=== PATIENT | male | born 1945 | race Caucasian/White ===

== ENCOUNTER 2020-03-06 19:10 | Emergency (ER) | payer MEDICARE, SELFPAY ==
--- NOTE | ~2020-03-06 | CT_ITS ---
EXAMINATION: CT brain wo con DATE: 03/06/2020 19:43 INDICATION: Numbness in the hands TECHNIQUE: Computed tomography (CT) of the head was performed without intravenous contrast. Sagittal and coronal reconstructions were performed. The mA was adjusted according to patient size. Iterative reconstruction technique was employed. The dose-length product was 681.00 mGy-cm. COMPARISON: None FINDINGS: No acute intracranial hemorrhage, acute infarction or abnormal extra axial fluid collection. There is mild scattered white matter hypoattenuation consistent with chronic small vessel ischemic disease. S ymmetric prominence of the sulci consistent with mild age-appropriate diffuse cerebral volume loss. V entricles are normal and symmetric. No mass/mass effect. Intracranial calcified cerebral atherosclero sis is noted. 9 x 6 mm nodule in the posterior right nasopharynx. The orbits, paranasal sinuses and m astoid air cells are normal. Intracranial calcified cerebral atherosclerosis is noted. IMPRESSION: 1. No acute intracranial process. 2. Mild scattered white matter hypoattenuation consistent with chronic small vessel ischemic disease. 3. 9 x 6 mm nodule which appears to arise from the lateral wall of the posterior right nasopharynx. D ifferential would include inverted papilloma, antrochoanal polyp, malignancy including squamous cell carcinoma or lymphoma. Alternatively this could represent adherent mucus. Consider ENT consultation f or further evaluation. Reviewed, dictated and finalized at location A. CARRIER DRIVER IMPRESSION: 1. No acute intracranial process. 2. Mild scattered white matter hypoattenuation consistent with chronic small ve ssel ischemic disease. 3. 9 x 6 mm nodule which appears to arise from the lateral wall of the posterio r right nasopharynx. Differential would include inverted papilloma, antrochoana l polyp, malignancy including squamous cell carcinoma or lymphoma. Alternativel y this could represent adherent mucus. Consider ENT consultation for further ev aluation.
--- NOTE | ~2020-03-06 | XR_ITS ---
EXAMINATION: XR chest 1V DATE: 03/06/2020 19:48 INDICATION: Confusion and numbness in the fingers. TECHNIQUE: frontal view of the chest was obtained. COMPARISON: Chest radiograph dated 04/03/2009 FINDINGS: Opacities at the left lower lung zone. No pulmonary edema, pleural effusion or pneumothorax. Borderli ne heart size. Median sternotomy wires and mediastinal surgical clips are seen, likely from prior cor onary artery bypass grafting. Cholecystectomy clips in right upper quadrant. IMPRESSION: 1. Opacities in the left lower lung zone which could represent atelectasis or pneumonia. Reviewed, dictated and finalized at location A. TING GATE DRIVER IMPRESSION: 1. Opacities in the left lower lung zone which could represent atelectasis or p neumonia.
[2020-03-06 19:19] VITALS: BP 225/70; PULSE 81; RESP 16; TEMP 36.8; O2SAT 98
--- NOTE | 2020-03-06 19:24 | ECG_ITS ---
Measurements Intervals [place] Rate: 73 P: 27 [place]: 146 QRS: -2 QRSD: 97 T: 30 QT: 388 QTc: 430 Interpretive Statements SINUS RHYTHM NORMAL ECG Electronically Signed On 03-06-2020 19:55:20 HAND I THERMAL CUTTER by Sahil Robison D.O.
[2020-03-06 19:37] LABS: Glucose Point of Care 120 (65-105)
[2020-03-06 19:45] LABS: Basophils Percent Auto 0.2 % (0.2-1.2); Eosinophils Absolute Auto 0.1 K/mm3 (0-0.3); Eosinophils Percent Auto 1.3 % (0-4.4); Hematocrit 42.6 % (42.0-52.0); Hemoglobin 14.1 g/dL (14.0-18.0); Immature Granulocyte Absolute 0.03 K/mm3 (0.00-0.031); Immature Granulocyte Percent A 0.4 % (0-0.5); Lymphocytes Absolute Auto 1.99 K/mm3 (0.9-3.2); Lymphocytes Percent Auto 23.4 % (18.3-44.2); Mean Corpuscular HGB Conc 33.1 g/dl (32-36); Mean Corpuscular Hemoglobin 27.4 pg (26-34); Mean Corpuscular Volume 82.9 fl (80-100); Mean Platelet Volume 10.1 fl (7.4-10.4); Monocytes Absolute Auto 0.8 K/mm3 (0.1-0.6); Monocytes Percent Auto 8.9 % (2.6-8.5); Neutrophils Absolute Auto 5.6 K/mm3 (1.3-6.7); Neutrophils Percent Auto 65.8 % (45.5-73.1); Platelet Count Result 180 k/mm3 (150-375); Red Blood Count 5.14 M/mm3 (4.6-6.20); Red Cell Distribution Width 13.8 % (11.5-14.5); White Blood Count 8.5 K/mm3 (4.5-10.0)
[2020-03-06 19:54] LABS: Prothrombin Time 14.2 Seconds (11.1-14.7)
[2020-03-06 19:57] LABS: Anion Gap 8 mmol/L (8-16); Blood Urea Nitrogen 22 mg/dL (9-20); Calcium 9.6 mg/dL (8.4-10.2); Carbon Dioxide 29 mmol/L (22-30); Chloride 101 mmol/L (98-107); Estimated Glomerular Filt Rate 54; Glucose 141 mg/dL (75-110); Potassium 4.9 mmol/L (3.4-5.0); Sodium 138 mmol/L (137-145)
[2020-03-06 20:08] LABS: Troponin I 0.014 ng/mL (0.000-0.034)
[2020-03-06 20:18] VITALS: BP 204/59; PULSE 66; RESP 20; O2SAT 96
[2020-03-06 20:32] LABS: Glucose Point of Care 146 (65-105)
--- NOTE | 2020-03-06 20:36 | ED.NEUROSD ---
HPI - Neuro Symptoms/Deficit General Chief Complaint: Neuro Symptoms/Deficit Stated Complaint: Numbness and confusion Time Seen by Provider: 03/06/20 20:18 Source: patient Mode of arrival: ambulatory Limitations: no limitations History of Present Illness HPI Narrative: Patient 72-year-old male complaining of numbness, tingling of both of his hands started prior to arrival after playing golf this afternoon. Patient states his symptoms lasted approximately 30 to 45 minutes and now resolved. Patient states he gave himself a sugar since has had similar episodes in the past when his sugar was low. Patient claims he did not eat anything prior to playing golf and that could have led to his low blood sugar. Patient also states that his blood pressure is high because he forgot to take his afternoon blood pressure medication at 4 PM. Patient is a [id number] diabetic takes Metformin for it. Patient denies any speech or visual disturbance, focal numbness, focal weakness or unsteady gait. Patient denies any chest pain, shortness of breath, abdominal pain, nausea, vomiting, fever or chills. Related Data Allergies Allergy/AdvReac Type Severity Reaction Status Date / Time No Known Allergies Allergy Mild Verified 03/06/20 19:11 Review of Systems Review of Systems: All systems reviewed & are unremarkable except as noted in HPI and below Constitutional: Constitutional: Denies body ache(s), Denies chills, Denies excessive sweating, Denies fatigue, Denies fever(s), Denies headache(s), Denies lethargy, Denies malaise, Denies weakness and Denies weight loss Eyes: Eyes: Denies blurry vision, Denies change in vision and Denies loss of vision ENT: Denies dizziness, Denies ear discharge, Denies headache(s), Denies lip swelling, Denies epistaxis, Denies nasal congestion, Denies neck pain, Denies throat swelling and Denies tongue swelling Cardiovascular: Cardiovascular: Denies chest pain, Denies chest pain at rest, Denies chest pain with activity, Denies diaphoresis, Denies rapid heart rate, Denies edema, Denies irregular heart rhythm, Denies lightheadedness, Denies palpitations, Denies dyspnea and Denies dyspnea on exertion Respiratory: Respiratory: Denies chest congestion, Denies cough, Denies hemoptysis, Denies dyspnea and Denies dyspnea on exertion Gastrointestinal: Gastrointestinal: Denies abdominal pain, Denies melena, Denies hematochezia, Denies diarrhea, Denies nausea, Denies vomiting and Denies hematemesis Musculoskeletal: Musculoskeletal: Denies abnormal gait, Denies deformity, Denies joint swelling, Denies limited range of motion, Denies neck pain and Denies numbness Neurologic: Denies Abnormal speech present, Denies abnormal gait, Denies confusion, Denies dizziness, Denies headache(s), Denies focal weakness, Denies loss of vision, Denies Other visual disturbances and Denies weakness Psychiatric: Psychiatric: Denies confusion, Denies depression, Denies auditory hallucinations, Denies homicidal ideation and Denies suicidal ideation Endocrine: Endocrine: Denies cold intolerance, Denies excessive sweating, Denies fatigue, Denies heat intolerance and Denies palpitations Hematologic/Lymphatic: Hematologic/Lymphatic: Denies easy bleeding and Denies easy bruising Allergic/Immunologic: Allergic/Immunologic: Denies lip swelling, Denies throat swelling and Denies tongue swelling [facility] Social History Social History Gender identity (if verbalized by the patient): Male Exam Const: General: cooperative, healthy appearing, comfortable, no acute distress, well developed, alert and awake; No confusion Orientation/consciousness: oriented to person, oriented to place, oriented to time, patient oriented x3 and No confusion Limitations: no limitations HENMT: Head: normal to inspection, normocephalic and atraumatic Ears: hearing grossly normal bilaterally, TM normal on the right and TM normal on the left General nose exam: Normal external nose prese
[2020-03-06 22:07] VITALS: BP 206/49; PULSE 77; RESP 16; O2SAT 100
[2020-03-06] MEDS: LABETALOL HCL INJ 100 MG/20 ML VIAL 10 MG IV PUSH (22:20)
[2020-03-06 22:49] VITALS: BP 149/48; PULSE 68; RESP 18; O2SAT 99
== END 2020-03-06 23:14 | disposition home or self-care (01) ==
PROVIDERS: Emergency Provider Emergency Medicine; PCP Internal Medicine
DX: I16.0 Hypertensive urgency (principal); R20.2 Paresthesia of skin; E11.9 Type 2 diabetes mellitus without complications; Z79.84 Long term (current) use of oral hypoglycemic drugs
CPT/HCPCS: 36415; 70450; 71045; 80048; 82948; 84484; 85025; 85610; 85730; 93005; 96374; 99284

== ENCOUNTER 2020-05-13 11:18 | Outpatient (CLI) | payer MEDICARE, SELFPAY ==
[2020-05-13 12:36] LABS: Anion Gap 6 mmol/L (8-16); Blood Urea Nitrogen 19 mg/dL (9-20); Calcium 9.6 mg/dL (8.4-10.2); Carbon Dioxide 29 mmol/L (22-30); Chloride 103 mmol/L (98-107); Estimated Glomerular Filt Rate > 60; Glucose 184 mg/dL (75-110); Potassium 5.3 mmol/L (3.4-5.0); Sodium 138 mmol/L (137-145)
== END 2020-05-13 11:19 | disposition home or self-care (01) ==
PROVIDERS: PCP Internal Medicine; Visit Provider Internal Medicine Cardiovascular Disease
DX: I05.2 Rheumatic mitral stenosis with insufficiency (principal)
CPT/HCPCS: 36415; 80048

== ENCOUNTER 2020-05-21 11:48 | Outpatient (CLI) | payer MEDICARE, SELFPAY ==
[2020-05-21 12:19] LABS: Anion Gap 8 mmol/L (8-16); Blood Urea Nitrogen 27 mg/dL (9-20); Calcium 9.9 mg/dL (8.4-10.2); Carbon Dioxide 29 mmol/L (22-30); Chloride 101 mmol/L (98-107); Estimated Glomerular Filt Rate 54; Glucose 177 mg/dL (75-110); Potassium 5.2 mmol/L (3.4-5.0); Sodium 138 mmol/L (137-145)
== END 2020-05-21 11:49 | disposition home or self-care (01) ==
PROVIDERS: PCP Internal Medicine; Visit Provider Internal Medicine Cardiovascular Disease
DX: E87.5 Hyperkalemia (principal)
CPT/HCPCS: 36415; 80048

== ENCOUNTER 2020-08-13 12:43 | Outpatient (CLI) | payer MEDICARE, SELFPAY ==
[2020-08-13 13:16] LABS: Potassium 5.3 mmol/L (3.4-5.0)
[2020-08-13 13:22] LABS: Alanine Aminotransferase 24 U/L (4-50); Albumin Level 4.4 g/dL (3.5-5.1); Alkaline Phosphatase 54 U/L (38-126); Anion Gap 5 mmol/L (8-16); Aspartate Amino Transferase 32 U/L (17-59); Bilirubin,Total 0.7 mg/dL (0.2-1.3); Blood Urea Nitrogen 19 mg/dL (9-20); Calcium 9.3 mg/dL (8.4-10.2); Carbon Dioxide 27 mmol/L (22-30); Chloride 102 mmol/L (98-107); Estimated Glomerular Filt Rate > 60; Glucose 257 mg/dL (75-110); Sodium 134 mmol/L (137-145)
== END 2020-08-13 12:44 | disposition home or self-care (01) ==
PROVIDERS: PCP Internal Medicine; Visit Provider Internal Medicine
DX: R79.89 Other specified abnormal findings of blood chemistry (principal)
CPT/HCPCS: 36415; 80053

== ENCOUNTER 2020-09-03 14:11 | Emergency (ER) | payer MEDICARE, SELFPAY ==
--- NOTE | ~2020-09-03 | XR_ITS ---
EXAMINATION: XR lumbar spine 2-3V EXAM DATE: 09/03/2020 15:34 INDICATION: Low back pain for 3 days, after golfing. TECHNIQUE: Lumber spine frontal, lateral, lateral L5-S1 projections for interpretation. There is no prior study for comparison. FINDINGS: The vertebral bodies are aligned in the AP dimension. Vertebral body and disc heights are well-maintained. There is mild to moderate lower lumbar facet arthropathy. Moderate aortic arterioscl erosis without evidence of aneurysm. Sacrum, sacroiliac joints, sacral arcuate lines are intact. Para spinal soft tissue is unremarkable. IMPRESSION: Mild to moderate lower lumbar facet arthropathy. Reviewed, dictated and finalized at location B.
[2020-09-03 14:13] VITALS: BP 185/68; PULSE 94; RESP 20; TEMP 36.5; O2SAT 98
--- NOTE | 2020-09-03 16:12 | ED.BACK ---
HPI - Back Pain/Injury General Chief Complaint: Back Pain/Injury Stated Complaint: back pain Time Seen by Provider: 09/03/20 14:18 Source: patient and RN notes reviewed Mode of arrival: ambulatory Limitations: no limitations History of Present Illness HPI Narrative: Patient is a 75-year-old male who presents to emergency department for evaluation of right lower back pain that began while playing golf as an aching pain that has persisted patient also notes a day later developed rash to the right inner thigh had a history of shingles and was concerned that this was similar in nature patient on arrival to emergency department is in no distress has not been able to see primary care was referred to the emergency to department for further evaluation Related Data Allergies Allergy/AdvReac Type Severity Reaction Status Date / Time No Known Allergies Allergy Mild Verified 09/03/20 14:17 Review of Systems Review of Systems: All systems reviewed & are unremarkable except as noted in HPI and below PMFSH Past Medical History Medical History (Updated 09/03/20 @ 16:19 by Hossein Fong PA-C) Coronary artery disease Hypertension Surgical History Surgical History (Updated 09/03/20 @ 16:16 by Hossein Fong PA-C) Heart valve replaced Social History Social History (Updated 09/03/20 @ 16:16 by Hossein Fong PA-C) Smoking status: Never smoker Gender identity (if verbalized by the patient): Male Exam Narrative: Exam Narrative: GENERAL: Well-appearing, well-nourished, and in no acute distress. HEAD: Normocephalic, atraumatic. EYES: PERRLA and EOMI. ENT: Nares clear, no rhinorrhea or epistaxis. Mucous membranes moist. CHEST: Clear to auscultation. No respiratory distress. No wheezes rales or rhonchi HEART: Regular rate and rhythm. No murmur heard. Normal peripheral pulses. EXTREMITIES: Normal range of motion. No edema. Tenderness of the right paraspinal SI region lumbar no rashes or deformities SKIN: Warm, dry, blistering rash to the right thigh. NEURO: No focal deficits. Alert and oriented x3. Cranial nerves II through XII grossly intact. Normal speech and gait PSYCH: Normal mood and affect. Course Course Emergency Course: Patient in the room at this time in no distress aware of case findings treatment plan and diagnosis felt appropriate for outpatient reevaluation agreeing to follow-up as instructed or to return if symptoms worsen or concerns Vital Signs Vital signs: Vital Signs Temperature 97.7 F 09/03/20 14:13 Pulse Rate 94 09/03/20 14:13 Respiratory Rate 20 09/03/20 14:13 Blood Pressure 185/68 H 09/03/20 14:13 Pulse Oximetry 98 09/03/20 14:13 Temperature 97.7 F 09/03/20 14:13 Pulse Rate 94 09/03/20 14:13 Respiratory Rate 20 09/03/20 14:13 Blood Pressure 185/68 H 09/03/20 14:13 Pulse Oximetry 98 09/03/20 14:13 MDM - Back Pain/Injury MDM Narrative Medical decision making narrative: Patients pain is positional in nature and localized to back without signs of cord compression or cauda equina based on neurological exam, skeletal exam and history. No fever or other significant factors to suggest osteomyelitis or spinal epidural abscess. No symptoms or signs to suggest pain is referred from abdominal or / cardiopulmonary sources. No pulsatile masses noted on exam. Patient ambulates with steady gait and is stable for outpatient management given case findings. Will be treated with medicines for possible shingles as well Imaging Data Radiologist's impression: ITS Impressions Lumbar Spine X-Ray 09/03/20 15:40 IMPRESSION: Mild to moderate lower lumbar facet arthropathy. Discharge Plan Discharge Clinical Impression: Lumbar radiculopathy, Rash and nonspecific skin eruption Patient Disposition: Home, Self-Care Condition: Stable Instructions: Antibiotic Form, Acute Low Back Pain (ED) Additional Instructions: Medications as needed and presc
== END 2020-09-03 16:59 | disposition home or self-care (01) ==
PROVIDERS: Emergency Provider Family Medicine; PCP Internal Medicine
DX: M54.16 Radiculopathy, lumbar region (principal); R21 Rash and other nonspecific skin eruption; I10 Essential (primary) hypertension; I25.10 Atherosclerotic heart disease of native coronary artery without angina pectoris
CPT/HCPCS: 72100; 99283

== ENCOUNTER 2020-09-18 09:46 | Outpatient (CLI) | payer MEDICARE, SELFPAY ==
[2020-09-18 10:18] LABS: Alanine Aminotransferase 24 U/L (4-50); Albumin Level 4.4 g/dL (3.5-5.1); Alkaline Phosphatase 47 U/L (38-126); Anion Gap 9 mmol/L (8-16); Aspartate Amino Transferase 31 U/L (17-59); Bilirubin,Total 0.7 mg/dL (0.2-1.3); Blood Urea Nitrogen 24 mg/dL (9-20); Calcium 10.1 mg/dL (8.4-10.2); Carbon Dioxide 27 mmol/L (22-30); Chloride 99 mmol/L (98-107); Estimated Glomerular Filt Rate 59; Glucose 258 mg/dL (75-110); Potassium 5.5 mmol/L (3.4-5.0); Sodium 135 mmol/L (137-145)
== END 2020-09-18 09:47 | disposition home or self-care (01) ==
PROVIDERS: PCP Internal Medicine; Visit Provider Internal Medicine
DX: R79.89 Other specified abnormal findings of blood chemistry (principal)
CPT/HCPCS: 36415; 80053

== ENCOUNTER 2020-09-25 10:50 | Outpatient (CLI) | payer MEDICARE, SELFPAY ==
[2020-09-25 12:00] LABS: Anion Gap 11 mmol/L (8-16); Blood Urea Nitrogen 18 mg/dL (9-20); Calcium 10.6 mg/dL (8.4-10.2); Carbon Dioxide 25 mmol/L (22-30); Chloride 101 mmol/L (98-107); Estimated Glomerular Filt Rate 59; Glucose 195 mg/dL (75-110); Potassium 5.7 mmol/L (3.4-5.0); Sodium 137 mmol/L (137-145)
== END 2020-09-25 10:51 | disposition home or self-care (01) ==
LOC: ANHLAB 10:53
PROVIDERS: PCP Internal Medicine; Visit Provider Internal Medicine
DX: E87.5 Hyperkalemia (principal)
CPT/HCPCS: 36415; 80048

== ENCOUNTER 2020-09-26 15:56 | Outpatient (CLI) | payer MEDICARE, SELFPAY ==
[2020-09-26 16:38] LABS: Anion Gap 8 mmol/L (8-16); Blood Urea Nitrogen 25 mg/dL (9-20); Calcium 9.5 mg/dL (8.4-10.2); Carbon Dioxide 25 mmol/L (22-30); Chloride 105 mmol/L (98-107); Estimated Glomerular Filt Rate 50; Glucose 101 mg/dL (75-110); Potassium 5.2 mmol/L (3.4-5.0); Sodium 138 mmol/L (137-145)
== END 2020-09-26 15:57 | disposition home or self-care (01) ==
LOC: ANHLAB 15:58
PROVIDERS: PCP Internal Medicine; Visit Provider Internal Medicine
DX: E83.52 Hypercalcemia (principal); E87.5 Hyperkalemia
CPT/HCPCS: 36415; 80048

== ENCOUNTER 2022-10-17 20:57 | Inpatient (IN) | payer MEDICARE, SELFPAY ==
[2022-10-17] VITALS (12 sets, daily range): BP systolic 166–220; BP diastolic 48–74; PULSE 98–135; RESP 18–53; TEMP 36.4; O2SAT 87–100
--- NOTE | ~2022-10-17 | US_ITS ---
EXAMINATION: US retroperitoneal duplex ltd DATE: 10/21/2022 20:05 INDICATION: Hypertension. TECHNIQUE: Multiple grayscale, color Doppler, and pulsed Doppler images of the kidneys and renal saul brendon were obtained. COMPARISON: None. FINDINGS: The aorta peak systolic velocity could not be measured. The right renal artery peak systolic velocity is 114 cm/s in the proximal segment, 114 cm/s in the mid segment, and 110 cm/s in the distal segment . The left renal artery peak systolic velocity is 159 cm/s in the proximal segment, 70 cm/s in the mi d segment, and 92 cm/s in the distal segment. IMPRESSION: 1. No Doppler evidence of renal artery stenosis. Reviewed, dictated and finalized at location A.
--- NOTE | ~2022-10-17 | XR_ITS ---
EXAMINATION: XR chest 1V portable DATE: 10/17/2022 21:25 INDICATION: Chest pain. ST elevation myocardial infarction. TECHNIQUE: A single frontal view of the chest was obtained. COMPARISON: Chest single view 03/06/2020 FINDINGS: There is a diffuse interstitial pattern, consistent mild pulmonary edema. No pleural effusi on or pneumothorax. Cardiomegaly is noted. Median sternotomy wires are noted. IMPRESSION: 1. Mild pulmonary edema. 2. Cardiomegaly. Reviewed, dictated and finalized at location E.
--- NOTE | ~2022-10-17 | CT_ITS ---
EXAMINATION: CT chest abdomen pelvis wo con DATE: 10/18/2022 11:12 INDICATION: Abdominal pain. Respiratory failure. TECHNIQUE: Computed tomography (CT) of the chest, abdomen, and pelvis was performed without intraveno us contrast. Automated exposure control and iterative reconstruction technique were employed. The dos e-length product was 1585.81 mGy-cm. COMPARISON: None FINDINGS: CHEST CT: There are small pleural effusions. The lungs demonstrate smooth septal thickening. There are patchy g roundglass opacities in all lobes. There is mild dependent atelectasis bilaterally. Cardiomegaly is n oted. There are changes of aortic valve replacement. There are coronary artery calcifications. No per icardial effusion. There is mild mediastinal lymphadenopathy, likely reactive. There is thoracic kyph osis. There is mild chronic anterior wedging of multiple vertebral bodies. There are bridging endplat e osteophytes at multiple levels in the spine, consistent with diffuse idiopathic skeletal hyperostos is (DISH). ABDOMEN/PELVIS CT: The liver is normal. There are changes of cholecystectomy. The spleen, pancreas, and adrenal glands a re normal. There is cortical thinning of the kidneys. There is an 8 mm cyst in left kidney. There are persistent contrast nephrograms, consistent with decreased kidney function. There is calcified ather osclerosis of the aorta and many of the other arteries. The prostate is moderately enlarged. The blad larry is decompressed by a Whatley catheter. There are bilateral inguinal hernias containing fat. There i s a small hematoma superficial to right common femoral artery. There is an umbilical hernia containin g fat. There are no pathologically enlarged lymph nodes. There is no free intraperitoneal fluid. Ther e is a supraumbilical ventral hernia containing fat to the right of midline. There is mild lumbar spo ndylosis. IMPRESSION: 1. Diffuse lung disease, likely moderate pulmonary edema. 2. Small pleural effusions. 3. Supraumbilical ventral hernia, umbilical hernia, and bilateral inguinal hernias containing fat. 4. Small hematoma superficial to right common femoral artery. Reviewed, dictated and finalized at location E. IMPRESSION: 1. Diffuse lung disease, likely moderate pulmonary edema. 2. Small pleural effusions. 3. Supraumbilical ventral hernia, umbilical hernia, and bilateral inguinal kristyn ias containing fat. 4. Small hematoma superficial to right common femoral artery.
--- NOTE | 2022-10-17 20:58 | ECG_ITS ---
Measurements Intervals [place] Rate: 129 P: 19 [place]: 127 QRS: -11 QRSD: 129 T: 168 QT: 289 QTc: 425 Interpretive Statements SINUS TACHYCARDIA LEFT VENTRICULAR HYPERTROPHY AND ST-T CHANGE ST-T WAVE ABNORMALITY IN DIFFUSE LEADS- CONSIDER ISCHEMIA PEAKED T WAVES- CONSIDER ISCHEMIA OR HYPERKALEMIA ABNORMAL ECG COMPARED TO ECG 03/06/2020 19:30:03 SINUS TACHYCARDIA NOW PRESENT LEFT VENTRICULAR HYPERTROPHY NOW PRESENT ST (T WAVE) DEVIATION NOW PRESENT PEAKED T WAVES NOW PRESENT Electronically Signed On 10-18-2022 8:09:26 CDT by Sahil Robison D.O.
[2022-10-17] MEDS: ASPIRIN 81 MG CHEWABLE TABLET 324 MG PO (21:08)
[2022-10-17 21:19] LABS: Basophils Percent Auto 0.4 % (0.2-1.2); Eosinophils Absolute Auto 0.1 K/mm3 (0-0.3); Eosinophils Percent Auto 1.2 % (0-4.4); Hematocrit 45.7 % (42.0-52.0); Hemoglobin 14.7 g/dL (14.0-18.0); Immature Granulocyte Absolute 0.04 K/mm3 (0.00-0.031); Immature Granulocyte Percent A 0.5 % (0-0.5); Lymphocytes Absolute Auto 1.22 K/mm3 (0.9-3.2); Lymphocytes Percent Auto 14.7 % (18.3-44.2); Mean Corpuscular HGB Conc 32.2 g/dl (32-36); Mean Corpuscular Volume 83.9 fl (80-100); Mean Platelet Volume 10.9 fl (7.4-10.4); Monocytes Absolute Auto 0.6 K/mm3 (0.1-0.6); Monocytes Percent Auto 7.7 % (2.6-8.5); Neutrophils Absolute Auto 6.3 K/mm3 (1.3-6.7); Neutrophils Percent Auto 75.5 % (45.5-73.1); Platelet Count Result 192 k/mm3 (150-375); Red Blood Count 5.45 M/mm3 (4.6-6.20); Red Cell Distribution Width 15.2 % (11.5-14.5); White Blood Count 8.3 K/mm3 (4.5-10.0)
--- NOTE | 2022-10-17 21:19 | ED.GENADULT ---
HPI - General Adult General Chief complaint: Chest Pain Stated complaint: chest pain Time Seen by Provider: 10/17/22 21:18 History of Present Illness HPI narrative: Patient is 77-year-old gentleman who presents the emergency department with chief complaint of chest pain and shortness of breath. The patient reports he has history of cardiac disease and also history of a aortic valve replacement the patient reports there was a bovine valve and is not on anticoagulants. Patient reports his primary supervisor litharge is Dr. Delvalle. Patient reports that about 30 minutes prior to arrival he started having discomfort in his chest and also felt extremely short of breath. Patient reports as though he just cannot get a good deep breath. Related Data Home Medications Medication Instructions Recorded Confirmed acyclovir 5 % topical ointment 1 applic topical .5XD 10/01/21 aspirin 81 mg tablet,delayed 81 mg PO DAILY 10/01/21 release cilostazol 100 mg tablet 100 mg PO DAILY 10/01/21 escitalopram oxalate 5 mg tablet 5 mg PO DAILY 10/01/21 (Lexapro) gabapentin 300 mg capsule 300 mg PO TID 10/01/21 hydrochlorothiazide 12.5 mg capsule 12.5 mg PO DAILY 10/01/21 lisinopril 40 mg tablet 40 mg PO DAILY 10/01/21 metformin 1,000 mg tablet 1,000 mg PO BID 10/01/21 metoprolol tartrate 25 mg tablet 12.5 mg PO BID 10/01/21 multivitamin 1 tablet PO DAILY 10/01/21 nitroglycerin 0.4 mg sublingual 0.4 mg sublingual Q5M PRN 10/01/21 tablet prazosin 1 mg capsule 2 mg PO QHS 10/01/21 rosuvastatin 20 mg tablet 20 mg PO DAILY 10/01/21 tramadol 50 mg tablet 50 mg PO TID PRN 10/01/21 Allergies Allergy/AdvReac Type Severity Reaction Status Date / Time No Known Allergies Allergy Mild Verified 10/17/22 21:36 Review of Systems Review of Systems: A 10 system review of systems was completed on the patient and is negative except for what is stated in the HPI. Nursing and ancillary documentation was reviewed. 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 Type 2 diabetes mellitus Surgical History Surgical History History of aortic valve replacement Bioprosthetic for AVR History of cholecystectomy ~early to mid 1990s History of coronary artery stent placement History of ventral hernia repair Unknown if mesh was used Hx of CABG Family History Family History Father Heart disease Valve replacement Social History Social History Smoking packs per day: 1.5 Smoking cigarettes per day: 30.0 Years smoked: 15 Smoking pack-years: 22.50 Smoking status: Former smoker Smoking end date: 04/05/89 Alcohol intake: current Alcohol use details: Rare alcohol use Living arrangements: with family Occupation/Education: retired Gender identity (if verbalized by the patient): Male Exam Narrative: GENERAL: Well-appearing, well-nourished, and in no acute distress. HEAD: Normocephalic, atraumatic. EYES: PERRLA and EOMI. ENT: Nares clear, no rhinorrhea or epistaxis. Mucous membranes moist. NECK: Supple. CHEST: Clear to auscultation. No respiratory distress. HEART: Regular rate and rhythm. No murmur heard. Normal peripheral pulses. ABDOMEN: Soft, nontender, nondistended, normal active bowel sounds. EXTREMITIES: Normal range of motion. No edema. SKIN: Warm, dry, no rash. NEURO: No focal deficits. Alert and oriented x3. PSYCH: Normal mood and affec
[2022-10-17 21:30] LABS: Prothrombin Time 13.9 Seconds (11.1-14.7)
[2022-10-17 21:31] LABS: Partial Thromboplastin Time 29.7 SECONDS (22.3-36.8)
--- NOTE | 2022-10-17 21:32 | ECG_ITS ---
Measurements Intervals [place] Rate: 117 P: 154 [place]: 152 QRS: 184 QRSD: 130 T: 15 QT: 333 QTc: 465 Interpretive Statements SINUS RHYTHM LIMB LEAD REVERSAL LEFT VENTRICULAR HYPERTROPHY AND ST-T CHANGE ST-T WAVE ABNORMALITY IN ANTEROLAT/INF LEADS- CONSIDER ISCHEMIA BASELINE ARTIFACT- I, II, III, AVR, AVL, AVF ABNORMAL ECG COMPARED TO ECG 10/17/2022 21:01:37 NO SIGNIFICANT CHANGES Electronically Signed On 10-20-2022 10:57:30 CDT by Sahil Robison D.O.
[2022-10-17 21:38] LABS: Alanine Aminotransferase 24 U/L (6-50); Albumin Level 4.6 g/dL (3.5-5.1); Alkaline Phosphatase 72 U/L (38-126); Anion Gap 12 mmol/L (8-16); Aspartate Amino Transferase 33 U/L (17-59); Bilirubin,Total 0.8 mg/dL (0.2-1.3); Blood Urea Nitrogen 31 mg/dL (9-20); Calcium 9.7 mg/dL (8.4-10.2); Carbon Dioxide 27 mmol/L (22-30); Chloride 100 mmol/L (98-107); Estimated CRCL calculation 46 ml/min; Estimated Glomerular Filt Rate 46; Glucose 350 mg/dL (65-110); Lipase 152 U/L (23-300); Potassium 4.9 mmol/L (3.4-5.0); Sodium 139 mmol/L (137-145)
[2022-10-17] MEDS: SODIUM CHLORIDE 0.9% IV 1,000 ML 1000 ML (21:38)
[2022-10-17] MEDS: MORPHINE SULFATE (*CRX) 2 MG/ML INJ (21:38)
[2022-10-17 21:49] LABS: Troponin I 0.022 ng/mL (0.000-0.034)
--- NOTE | 2022-10-17 21:56 | PC.NURSE ---
Patient arrives to the ER with chest pain. EKG shown to EDP-STEMI alert called overhead. Patient states he had taken one baby ASA earlier today. Three baby ASA PO administered. 2 LPM of supplemental oxygen administered via nasal cannula. Patient given 5 mg of Metoprolol IVP at 2112 per EDP VORB due to hypertension and tachycardia at 130 bpm. No ectopics noted. Administered to maintain heart rate below 120 bpm. Patient given a second dose -total of 10 mg of Metoprolol IVP- at 2117. 180 mg of Brilinta PO administered at 2122. 4000 units of Heparin IVP administered per standing order of 60mg/kg at 2122. EDP contacted for administration of Nitro. VORB to administer 0.4 mg of Nitro sublingually until pain subsides- total of two administrations. Morphine administered at 2135. Cath team arrives at bedside at 2144.
--- NOTE | 2022-10-17 22:58 | WPDCARDPROC ---
Cardiac Cath Procedure Note Date of procedure:: 10/17/22 Performing physician:: Rayray Nelson MD Indication:: shortness of breath /STEMI declared in emergency room Brief clinical history:: this is a 77-year-old man unknown to me prior to this evening. He apparently has a history of coronary artery disease and aortic valve disease with a previous bypass and aortic valve replacement. He enters the hospital with some principal symptoms of severe shortness of breath. Shortness of breath began a number of days ago and became severe this evening. He does have some chest pain as well but the principal symptom seems to be dyspnea. ECG in the emergency room was interpreted as acute anterior wall infarction. STEMI team was activated. I do not have access to records during this emergency pertaining to his previous cardiac surgery. Procedure Procedure performed:: Coronary angiography internal mammary graft angiography aortic root injection Sedation/Medication given:: fentanyl 50 mg Versed 2 mg case start time 10:09 p.m. case end time 10:41 p.m. sedation provided by Maryanne Jones RN, trained observer Access site:: right femoral artery Estimated blood loss:: 30 cc Procedure note:: patient was brought to the cardiac catheterization lab in the emergent setting described above. The right femoral triangle was prepared and draped in the usual fashion. Anesthesia was provided with 1% lidocaine infiltrated locally. Using the modified Seldinger technique the femoral artery was punctured and a 6 [place] vascular sheath was placed. Vascular access was difficult the vessel was significantly calcified and diseased. The 6 [place] sheath and dilator would not a rate originally advanced into the artery. I used 4 [place], 5 [place] and then 6 [place] dilators to ultimately achieve access to the femoral artery. After this all catheter exchanges were performed in the descending aorta using the J wire. A 5 [place] FL4 catheter was used to engage and inject the left coronary artery in multiple projections. Following this a 5 [place] JR4 catheter was used to engage the right coronary artery in orthogonal projections. This catheter was used to look for aorta coronary grafts and none were found. I used the same JR4 catheter to engage and inject the left internal mammary which is grafted to the LAD. Following this I exchanged this catheter for a angled pigtail catheter and performed an aortic root injection in the 35 degree GREEK projection. After this the case was terminated. The patient was taken to the ICU for post cath and and CHF management. Patient appeared to be in significant pulmonary edema in the laborer orchard and at the conclusion of the case. There were no other complications of the angiogram. Findings:: hemodynamics: Central aortic pressure is 172/90. The left ventricle was not entered during this procedure. The left main coronary artery is nicely patent. The left anterior descending is a moderate caliber artery extending down to around the apex there is moderate proximal atherosclerosis in the LAD with small diagonal branches. There is however GIOVANY 3 flow in the LAD. Competitive flow can be seen in the mid LAD arising from the internal mammary graft. The circumflex is a moderate caliber artery giving rise to the marginal branches there is mild diffuse atherosclerosis throughout the circumflex none of which appears to be flow limiting. The right coronary artery is large in caliber and dominant to the posterior circulation the right coronary artery has [id number] diffuse atherosclerosis there is approximately 40% stenosis in the 2nd portion. There does not appear to be any flow-limiting disease in the RCA. The left internal mammary is a large vessel it is grafted to the mid LAD. There are no lesions in the CARTER or the anastomosis to the LAD it provides good flow into the LAD as described above in the antegrade angiogr
--- NOTE | 2022-10-17 23:07 | PM.IMHP ---
H&P: HPI History of Present Illness Date/Time: 10/17/22 23:07 Chief Complaint: shortness of breath Narrative: this is a 77-year-old man unknown to me prior to this encounter. He apparently has a history of previous coronary and aortic valve disease with bypass and aortic valve replacement approximately 11 years ago. He enters the hospital with symptoms of shortness of breath which became severe this evening. STEMI was activated by the ER staff based on the appearance of his ECG. Patient is now being prepared for emergency angiography in this setting. He is not reporting any significant chest pain at this time but is reporting shortness of breath. Review of Systems Review of Systems: ROS unobtainable: Yes unobtainable due to medical condition PMFSH Past Medical History Medical History Anxiety Aortic stenosis Coronary artery disease Depression H/O agent [place] exposure History of asthma As a child Hyperkalemia Hypertension Hypertension associated with diabetes Mitral stenosis with regurgitation Mixed diabetic hyperlipidemia associated with type 2 diabetes mellitus Pleural plaque due to asbestos exposure Type 2 diabetes mellitus Surgical History Surgical History History of aortic valve replacement Bioprosthetic for AVR History of cholecystectomy ~early to mid History of coronary artery stent placement History of ventral hernia repair Unknown if mesh was used Hx of CABG Family History Family History Father Heart disease Valve replacement Social History Social History Smoking packs per day: 1.5 Smoking cigarettes per day: 30.0 Years smoked: 15 Smoking pack-years: 22.50 Smoking status: Former smoker Smoking end date: 04/05/89 Alcohol intake: current Alcohol use details: Rare alcohol use Living arrangements: with family Occupation/Education: retired Gender identity (if verbalized by the patient): Male Meds Home Medications and Allergies Home Medications Medication Instructions Recorded Confirmed Type acyclovir 5 % topical ointment 1 applic topical .5XD 10/01/21 History aspirin 81 mg tablet,delayed 81 mg PO DAILY 10/01/21 History release cilostazol 100 mg tablet 100 mg PO DAILY 10/01/21 History escitalopram oxalate 5 mg tablet 5 mg PO DAILY 10/01/21 History (Lexapro) gabapentin 300 mg capsule 300 mg PO TID 10/01/21 History hydrochlorothiazide 12.5 mg capsule 12.5 mg PO DAILY 10/01/21 History lisinopril 40 mg tablet 40 mg PO DAILY 10/01/21 History metformin 1,000 mg tablet 1,000 mg PO BID 10/01/21 History metoprolol tartrate 25 mg tablet 12.5 mg PO BID 10/01/21 History multivitamin 1 tablet PO DAILY 10/01/21 History nitroglycerin 0.4 mg sublingual 0.4 mg sublingual Q5M PRN 10/01/21 History tablet prazosin 1 mg capsule 2 mg PO QHS 10/01/21 History rosuvastatin 20 mg tablet 20 mg PO DAILY 10/01/21 History tramadol 50 mg tablet 50 mg PO TID PRN 10/01/21 History propranolol 20 mg tablet See Rx Instructions .Route 09/22/22 Rx .COMPLEX #270 tabs Allergies Allergy/AdvReac Type Severity Reaction Status Date / Time No Known Allergies Allergy Mild Verified 10/17/22 21:36 Vital Signs Vital Signs - 24 hr 10/17/22 21:08 10/17/22 21:11 10/17/22 21:12 Pulse Rate 135 H 132 H Respiratory Rate 31 H 28 H 53 H Blood Pressure 220/74 H 219/74 H Pulse Oximetry 95 92 Oxygen Delivery Room Air Oxygen Flow Rate 10/17/22 21:12 10/17/22 21:15 10/17/22 21:42 Pulse Rate 112 H Respiratory Rate 18 Blood Pressure 166/48 H Pulse Oximetry 91 97 97 Oxygen Delivery Room Air Nasal Cannula Oxygen Flow Rate 2 10/17/22 21:15 10/17/22 21:32 10/17/22 21:36 Pulse Rate 125 H 118 H 119 H
--- NOTE | 2022-10-17 23:25 | ECG_ITS ---
Measurements Intervals [place] Rate: 121 P: HI: 0 QRS: 7 QRSD: 132 T: 154 QT: 324 QTc: 461 Interpretive Statements SINUS TACHYCARDIA INTRAVENTRICULAR CONDUCTION DELAY LEFT VENTRICULAR HYPERTROPHY AND ST-T CHANGE ST-T WAVE ABNORMALITY IN LATERAL LEADS- CONSIDER ISCHEMIA BASELINE ARTIFACT- V1-V6 ABNORMAL ECG COMPARED TO ECG 10/17/2022 21:32:52 NO SIGNIFICANT CHANGES Electronically Signed On 10-20-2022 10:58:42 CDT by Sahil Robison D.O.
[2022-10-17] MEDS: FUROSEMIDE INJ 40 MG/4 ML VIAL IV PUSH (23:26)
[2022-10-17] MEDS: LORazepam INJ (*CRX) 2 MG/ML VIAL 1 MG IV PUSH (23:41)
[2022-10-17] MEDS: lisinopriL 20 MG TABLET 40 MG PO (23:43)
[2022-10-17 23:49] LABS: Alveolar/Arterial O2 Gradient 150.1 mmHg; Base Excess ABG -6.3 mEq/l (+/-2.0); Fractional Inspired Oxygen 60 %; HCO3 ABG 21.3 mEq/l (22.0-26.0); Oxygen Content ABG 21.5 %vol (16.0-22.0); Oxygen Saturation ABG 99.3 % (95.0-100.0); PO2 ABG 222.7 mmHg (80.0-100.0); PO2 FiO2 Ratio Arterial Blood 3.71 %; Total Hemoglobin 15.3 g/dL (12.0-18.0)
[2022-10-17 23:53] LABS: Modified Allen's Test Pass; Site Drawn RIGHT RADIAL; pH ABG 7.247 (7.350-7.450)
[2022-10-17 23:54] LABS: Device BIPAP
[2022-10-18] VITALS (28 sets, daily range): BP systolic 78–206; BP diastolic 34–70; PULSE 76–131; RESP 13–36; TEMP 36.2–37.7; O2SAT 96–100; BMI 34.3
[2022-10-18 00:01] LABS: Expiratory Pressure 6 cmH2O; Inspiratory Pressure 14 cmH2O
[2022-10-18] MEDS: MORPHINE SULFATE (*CRX) 4 MG/ML INJ IV PUSH (00:37)
--- NOTE | 2022-10-18 00:52 | ADMGEN ---
This patient, Yo Robbins, was admitted to Intensive Care Unit-4. Patient/family oriented to hospital policies and general routines including ID bracelet, bed and alarms, visiting hours, pain management, procedures, bathroom and other care routines, personal items, smoking policy, room service/diet, and visiting hours. Information on how to activate the Rapid Response Team has been discussed. Patient/Family are encouraged to report perceived risks to care and to ask questions if they do not understand what they are told or what they should do.
--- NOTE | 2022-10-18 03:30 | PM.IMHP ---
H&P: HPI History of Present Illness Date/Time: 10/18/22 03:30 Chief Complaint: shortness of breath Narrative: This is a 77-year-old male with past medical history significant for hypertension, type diabetes mellitus, aortic stenosis, coronary artery disease, depression, asbestos exposure. patient presented to the emergency room with chest pain, shortness of breath, chest discomfort pressure-like started 30 minutes prior to arrival to emergency room. Initial EKG showed ST segment elevation electroplating laborer was activated and patient is now status post left heart catheterization. Upon arrival to intensive care unit patient will had significant respiratory distress requiring BiPAP. At the time of my visit patient is on BiPAP so history taking is somehow limited patient also expresses having anxiety. EXAMINATION: XR chest 1V portable DATE: 10/17/2022 21:25 INDICATION: Chest pain. ST elevation myocardial infarction. TECHNIQUE: A single frontal view of the chest was obtained. COMPARISON: Chest single view 03/06/2020 FINDINGS: There is a diffuse interstitial pattern, consistent mild pulmonary edema. No pleural effusion or pneumothorax. Cardiomegaly is noted. Median sternotomy wires are noted. IMPRESSION: 1. Mild pulmonary edema. 2. Cardiomegaly. Review of Systems Review of Systems: ROS unobtainable: Yes unobtainable due to medical condition ( Respiratory failure on BiPAP) [facility] Past Medical History Medical History (Updated 10/18/22 @ 04:23 by Catarina Horvath MD) Anxiety Aortic stenosis Coronary artery disease Depression H/O agent [place] exposure History of asthma As a child Hyperkalemia Hypertension Hypertension associated with diabetes Mitral stenosis with regurgitation Mixed diabetic hyperlipidemia associated with type 2 diabetes mellitus Pleural plaque due to asbestos exposure Type 2 diabetes mellitus Surgical History Surgical History History of aortic valve replacement Bioprosthetic for AVR History of cholecystectomy ~early to mid 1990s History of coronary artery stent placement History of ventral hernia repair Unknown if mesh was used Hx of CABG Family History Family History Father Heart disease Valve replacement Social History Social History Smoking packs per day: 1.5 Smoking cigarettes per day: 30.0 Years smoked: 15 Smoking pack-years: 22.50 Smoking status: Former smoker Smoking end date: 04/05/89 Alcohol intake: current Alcohol use details: Rare alcohol use Living arrangements: with family Occupation/Education: retired Gender identity (if verbalized by the patient): Male Meds Home Medications and Allergies Home Medications Medication Instructions Recorded Confirmed Type aspirin 81 mg tablet,delayed 81 mg PO DAILY 10/01/21 10/18/22 History release cilostazol 100 mg tablet 100 mg PO DAILY 10/01/21 10/18/22 History gabapentin 300 mg capsule 300 mg PO TID 10/01/21 10/18/22 History hydrochlorothiazide 12.5 mg capsule 12.5 mg PO DAILY 10/01/21 10/18/22 History lisinopril 40 mg tablet 40 mg PO DAILY 10/01/21 10/18/22 History metformin 1,000 mg tablet 1,000 mg PO BID 10/01/21 10/18/22 History metoprolol tartrate 25 mg tablet 12.5 mg PO BID 10/01/21 10/18/22 History multivitamin 1 tablet PO DAILY 10/01/21 10/18/22 History prazosin 1 mg capsule 2 mg PO QHS 10/01/21 10/18/22 History rosuvastatin 20 mg tablet 20 mg PO DAILY 10/01/21 10/18/22 History tramadol 50 mg tablet 50 mg PO TID PRN Pain 10/01/21 10/18/22 History propranolol 20 mg tablet 20 mg PO TID 10/18/22 10/18/22 History Allergies Allergy/AdvReac Type Severity Reaction Status Date / Time No Known Allergies Allergy Mild Verified 10/17/22 21:36 Vital Signs Vital Signs - 24 hr 10/17/22 21:08 10/17/22 21:11
[2022-10-18 05:42] LABS: Alveolar/Arterial O2 Gradient 94.3 mmHg; Fractional Inspired Oxygen 35 %; Oxygen Content ABG 19.7 %vol (16.0-22.0); Oxygen Saturation ABG 97.9 % (95.0-100.0); Oxyhemoglobin 96.6 % THb (90.0-100.0); PCO2 ABG 43.1 mmHg (35.0-45.0); PO2 ABG 105.1 mmHg (80.0-100.0); Total Hemoglobin 14.4 g/dL (12.0-18.0); pH ABG 7.414 (7.350-7.450)
[2022-10-18 05:43] LABS: Device BIPAP; Modified Allen's Test Pass; Site Drawn RIGHT RADIAL
[2022-10-18 05:44] LABS: Expiratory Pressure 6 cmH2O; Inspiratory Pressure 14 cmH2O
[2022-10-18 09:23] LABS: Hematocrit 43.8 % (42.0-52.0); Hemoglobin 14.1 g/dL (14.0-18.0); Mean Corpuscular HGB Conc 32.2 g/dl (32-36); Mean Corpuscular Volume 83.7 fl (80-100); Mean Platelet Volume 10.8 fl (7.4-10.4); Platelet Count Result 173 k/mm3 (150-375); Red Blood Count 5.23 M/mm3 (4.6-6.20); White Blood Count 14.5 K/mm3 (4.5-10.0)
[2022-10-18 09:27] LABS: Alanine Aminotransferase 25 U/L (6-50); Albumin Level 4.3 g/dL (3.5-5.1); Alkaline Phosphatase 68 U/L (38-126); Anion Gap 5 mmol/L (8-16); Aspartate Amino Transferase 57 U/L (17-59); Bilirubin,Total 1.1 mg/dL (0.2-1.3); Blood Urea Nitrogen 30 mg/dL (9-20); Calcium 9.7 mg/dL (8.4-10.2); Carbon Dioxide 32 mmol/L (22-30); Chloride 103 mmol/L (98-107); Estimated CRCL calculation 57 ml/min; Estimated Glomerular Filt Rate 59; Glucose 183 mg/dL (65-110); Magnesium 1.9 mg/dL (1.6-2.3); Potassium 4.8 mmol/L (3.4-5.0); Sodium 140 mmol/L (137-145)
[2022-10-18 09:31] LABS: Hemoglobin A1C 6.6 % (<5.7)
[2022-10-18 09:36] LABS: NT Pro B Type Natriuretic Pept > 30000 pg/mL (19.9-100)
[2022-10-18] MEDS: GABAPENTIN 300 MG CAPSULE PO ×3 (09:48→16:46)
[2022-10-18] MEDS: hydroCHLOROthiazide 12.5 MG CAPSULE PO (09:48)
[2022-10-18] MEDS: MULTIVITAMINS THERAPEUTIC TAB (*BKC) 1 TABLET PO (09:48)
[2022-10-18] MEDS: METOPROLOL TARTRATE 12.5 MG TABLET PO ×2 (09:48→21:58)
[2022-10-18] MEDS: cilostazoL 100 MG TABLET PO (09:48)
[2022-10-18] MEDS: ROSUVASTATIN 10 MG TABLET 20 MG PO (09:48)
[2022-10-18] MEDS: ASPIRIN 81 MG ENTERIC TABLET PO (09:48)
[2022-10-18] MEDS: FUROSEMIDE INJ 40 MG/4 ML VIAL IV PUSH (09:49)
[2022-10-18] MEDS: PROPRANOLOL HCL 20 MG TABLET PO ×3 (09:49→16:46)
[2022-10-18 10:00] LABS: Glucose Point of Care 185 mg/dl (65-105)
--- NOTE | 2022-10-18 11:07 | WPDCNINT ---
Assessment and Plan Assessment and plan (1) Acute respiratory failure with hypoxia: Code(s): J96.01 - Acute respiratory failure with hypoxia Status: Acute Assessment and Plan: Acute respiratory failure secondary to pulmonary edema congestive heart failure Patient was placed on BiPAP on arrival to ICU. He was on 14/ initially on 60%. ABG showed hypercarbia and mild respiratory acidosis This morning ABG shows improvement and resolution of acidosis and hypercarbia. FiO2 was weaned down to 35% Patient did receive Lasix overnight and had good urine output response Continue Lasix this morning I will transition patient to nasal cannula and see if patient tolerates. Continue BiPAP p.r.n. if needed (2) Acute pulmonary edema: Code(s): J81.0 - Acute pulmonary edema Status: Acute Assessment and Plan: Check echocardiogram to evaluate cardiac function along with aortic and mitral valve (3) Abdominal pain: Code(s): R10.9 - Unspecified abdominal pain Status: Acute Assessment and Plan: Patient has very nonspecific symptoms of abdominal discomfort going over 6-8 months. He states he had workup done at [facility] which showed hernia and few other finding although he is not sure fall the details. I will obtain a repeat CT scan Lipase was normal His symptoms suggest that he may have diabetic gastroparesis and I will start him on Reglan Trial of PPI and p.r.n. Tums (4) Chest pain: Code(s): R07.9 - Chest pain, unspecified Status: Acute Assessment and Plan: Nonspecific abdominal and chest pain Cardiac catheterization was negative for any occlusion (5) Benign essential tremor: Code(s): G25.0 - Essential tremor Status: Acute Assessment and Plan: Continue propranolol (6) Elevated serum creatinine: Code(s): R79.89 - Other specified abnormal findings of blood chemistry Status: Acute Assessment and Plan: Patient presented with creatinine 1.5. He appears to have chronic kidney disease with creatinine was slightly more elevated Repeat creatinine 1.2 Monitor urine output electrolytes and creatinine Will resume lisinopril from tomorrow (7) Diabetes mellitus: Code(s): E11.9 - Type 2 diabetes mellitus without complications Status: Acute Assessment and Plan: Sliding scale insulin HbA1c 6.6 Hold metformin in light of elevated creatinine Plan DVT prophylaxis -subcu Lovenox Nutrition -start liquid diet advance as tolerated depending on patient's respiratory status Code Status -patient wishes to be Full Code Discussed with patient his and 2 daughters updated them with patient's current status and current treatment plan. I answered all her questions Total Critical Care Time - 40 minutes Due to a high probability of clinically significant, life threatening deterioration, the patient required my highest level of preparedness to intervene emergently and I personally spent this critical care time directly and personally managing the patient. This critical care time included obtaining a history; examining the patient; pulse oximetry; ordering and review of studies; arranging urgent treatment with development of a management plan; evaluation of patient's response to treatment; frequent reassessment; and discussions with other providers. It was exclusive of separately billable procedures and treating other patients and teaching time. Please see Assessment and Plan section and the rest of the note for further information on patient assessment and treatment Med Aide Consult Note Consult date: 10/18/22 Reason for consult: Acute respiratory failure, pulmonary edema HPI: Yo Robbins is a 77 year old male with past medical history of coronary disease status post CABG and aortic valve replacement 11 years, diabetes, hypertension presented yesterday with chief complaint of shortness of breath and discomfort in his chest. Fe
--- NOTE | 2022-10-18 11:20 | PM.IMPN ---
Progress Note: A&P Assessment and Plan (1) Acute respiratory failure with hypoxia: Code(s): J96.01 - Acute respiratory failure with hypoxia Status: Acute Assessment and Plan: Acute respiratory failure secondary to pulmonary edema congestive heart failure Patient was placed on BiPAP on arrival to ICU. He was on 14/6 initially on 60%. ABG showed hypercarbia and mild respiratory acidosis Repeat ABG shows improvement and resolution of acidosis and hypercarbia. FiO2 was weaned down to 35% Patient did receive Lasix overnight and had good urine output response Continue Lasix (2) Acute pulmonary edema: Code(s): J81.0 - Acute pulmonary edema Status: Acute Assessment and Plan: Check echocardiogram to evaluate cardiac function along with aortic and mitral valve (3) Abdominal pain: Code(s): R10.9 - Unspecified abdominal pain Status: Acute Assessment and Plan: Patient has very nonspecific symptoms of abdominal discomfort going over 6-8 months. He states he had workup done at [facility] which showed hernia and few other finding although he is not sure fall the details. Lipase was normal His symptoms suggest that he may have diabetic gastroparesis, start on Reglan (4) Chest pain: Code(s): R07.9 - Chest pain, unspecified Status: Acute Assessment and Plan: Nonspecific abdominal and chest pain Cardiac catheterization was negative for any occlusion (5) Benign essential tremor: Code(s): G25.0 - Essential tremor Status: Acute Assessment and Plan: Continue propranolol (6) Elevated serum creatinine: Code(s): R79.89 - Other specified abnormal findings of blood chemistry Status: Acute Assessment and Plan: Patient presented with creatinine 1.5. He appears to have chronic kidney disease with creatinine was slightly more elevated Repeat creatinine 1.2 Monitor urine output electrolytes and creatinine Will resume lisinopril from tomorrow (7) Diabetes mellitus: Code(s): E11.9 - Type 2 diabetes mellitus without complications Status: Acute Assessment and Plan: Sliding scale insulin HbA1c 6.6 Hold metformin in light of elevated creatinine Plan DVT prophylaxis with Lovenox GI prophylaxis not indicated Code status full code Subjective Date/time seen: 10/18/22 11:20 Interval history: 77-year-old male with history of hypertension, diabetes, aortic stenosis, heart disease among other comorbidities is presenting with chest pain and shortness of breath and found to have a STEMI and urgently taken to the pathology laboratory director where no new vascular disease nor obstruction was discovered and is currently being treated for respiratory failure secondary to heart failure exacerbation. No overnight events noted. No nausea, vomiting or diarrhea. No fevers or chills. Denies CP or SOB Review of Systems Review of Systems: 12 point review of systems was assessed and was negative except as noted in the HPI Exam Narrative: General: Pt is alert awake and in NAD patient on BiPAP Lungs/Chest: CTAB, comfortable on nc, no wheeze Cardiac: RRR. Normal S1 S2. No murmurs Circulation: Pedal pulses are weak but palpable bilaterally and symmetrical. Abdomen: Normal bowel sounds.. Soft. NT. ND. Extremities: No clubbing, cyanosis or edema. Warm no significant pedal edema : Whatley in place Neurologic: Follows commands. Moves all 4 extremities PERRL AO x3 Skin: No Rash Objective Data Vital Signs Vital Signs: Vital Signs - 24 hr 10/17/22 21:08 10/17/22 21:11 10/17/22 21:12 Temperature Pulse Rate 135 H 132 H Respiratory Rate 31 H 28 H 53 H Blood Pressure 220/74 H 219/74 H Pulse Oximetry 95 92 Oxygen Delivery Room Air Oxygen Flow Rate Fraction of Inspired Oxygen 10/17/22 21:12 10/17/22 21:15 10/17/22 21:42 Temperature Pulse Rate 112 H Respiratory Rate 18 Blood Pressure 166/48 H Pulse Oximetr
[2022-10-18] MEDS: METOCLOPRAMIDE HCL 5 MG TABLET PO ×3 (11:46→21:59)
[2022-10-18] MEDS: PANTOPRAZOLE 40 MG TABLET PO (11:46)
[2022-10-18] MEDS: INSULIN ASPART (*BKC) 100 UNITS/ML SUB-Q ×2 (11:49→21:58)
[2022-10-18 11:50] LABS: Glucose Point of Care 256 mg/dl (65-105)
--- NOTE | 2022-10-18 13:27 | PM.PNCARD ---
Progress Note: A&P Assessment and Plan (1) Acute pulmonary edema: Code(s): J81.0 - Acute pulmonary edema Status: Acute Plan 77-year-old man with previous aortic valve replacement and but surgical bypass grafting in 2010 as detailed above. He entered the hospital yesterday with some shortness of breath obvious pulmonary edema by exam and chest x-ray and was felt to be having an anterior wall LA. This was shown not to be the case at the time of emergency angiography. He has both good antegrade flow in the elim ira LAD as well as a patent CONNOR graft. We will repeat echocardiogram tomorrow to assess his LV function and the status of his aortic prosthesis. The office echocardiogram a couple of years ago did show some mild AI hopefully this remains mild. Angiographically it looked more significant than that. Further recommendations will be pending tomorrow's echocardiographic findings. I did order the patient's lisinopril yesterday evening in this situation. It appears the hospitalists have discontinued it. Rayray Nelson MD [facility] Subjective Date/time seen: Date of service: 10/18/22 13:27 Interval history: Follow-up visit in this 77-year-old man with: History of aortic valve stenosis and coronary artery disease. 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 Presented to the hospital yesterday with severe shortness of breath was felt to be having STEMI which was activated by the ED staff. Emergency angiography note is dictated separately. There was no evidence of acute anterior LA. in fact the coronary artery disease was relatively mild I did not see any obvious flow-limiting disease in the LAD and the CONNOR graft remains patent. There was no obvious flow-limiting disease in the right coronary either and the saphenous vein graft appears to be occluded. There is some angiographic evidence of prosthetic AI which was noted on his aortic root injection. He feels much better this morning following aggressive diuresis. Exam Const: General: comfortable and no acute distress Other: Pleasant white male no apparent distress HENMT: Mouth: Yes moist mucous membranes Eyes: Sclera: sclerae normal Neck: Neck: supple Other: Mildly elevated venous pressure about 2 cm above the angle of Romero Resp: Effort & Inspection: normal respiratory effort Other: Scant basilar crackles noted at this time Cardio: Rate: regular rate Rhythm: regular rhythm Other: Grade 2/6 crescendo decrescendo murmur at the base. Barely audible diastolic decrescendo murmur audible at the apex with breath holding GI: GI Palp: Yes Soft to palpation Auscultation: normal bowel sounds Skin: General skin exam: normal color Neuro: Other: Alert and oriented x3 Objective Data Vital Signs Vital Signs: Vital Signs - 24 hr 10/17/22 21:08 10/17/22 21:11 10/17/22 21:12 Temperature Pulse Rate 135 H 132 H Respiratory Rate 31 H 28 H 53 H Blood Pressure 220/74 H 219/74 H Pulse Oximetry 95 92 Oxygen Delivery Room Air Oxygen Flow Rate Fraction of Inspired Oxygen 10/17/22 21:12 10/17/22 21:15 10/17/22 21:42 Temperature Pulse Rate 112 H Respiratory Rate 18 Blood Pressure 166/48 H Pulse Oximetry 91 97 97 Oxygen Delivery Room Air Nasal Cannula Oxygen Flow Rate 2 Fraction of Inspired Oxygen 10/17/22 21:15 10/17/22 21:32 10/17/22 21:36 Temperature Pulse Rate 125 H 118 H 119 H Respiratory Rate 31 H 19 30 H Blood Pressure 210/62 H 182/74 H 179/74 H Pulse Oximetry 94 97 87 L Oxygen Delivery Oxygen Flow Rate Fraction of Inspired Oxygen 10/17/22 23:00 10/17/22 23:15 10/17/22 23:26 Temperature 36.4 C Pulse Rate 98 121 H 118 H Respiratory Rate 33 H 32 H 28 H Blood Pressure 174/64 H 176/66 H Pulse Oximetry 100 100 100 Oxygen Delivery BiPAP Oxygen Flow Rate Fraction of Inspired Oxygen 10/17/22 23:41 10/17/22 23:56
[2022-10-18 14:41] LABS: Influenza A QL RT-PCR Negative (Negative); Influenza B QL RT-PCR Negative (Negative); RSV RNA, RT-PCR Negative (Negative); SARS-CoV-2 RNA PCR Negative (Negative)
--- NOTE | 2022-10-18 16:00 | PC.NURSE ---
This patient, Yo Robbins, was received from ICU 4 on 10/18/22 at 1600. Patient/family oriented to unit policies and routines.
[2022-10-18 16:24] LABS: Glucose Point of Care 198 mg/dl (65-105)
--- NOTE | 2022-10-18 16:31 | PC.NURSE ---
This patient, Yo Robbins, was transferred to [facility] on 10/18/22 at 1600. Personal belongings sent with patient. Report given to Kristina. Appropriate documentation sent with patient.
[2022-10-18 20:34] LABS: Glucose Point of Care 211 mg/dl (65-105)
[2022-10-18] MEDS: PRAZOSIN HCL 1 MG CAPSULE 2 MG PO (22:03)
--- NOTE | 2022-10-18 23:30 | PC.NURSE ---
Dr. Horvath notified of low blood pressure despite manual blood pressure. Give 250ml NS, may repeat x1 if hypotension persists. Give Glucagon 1mg IV push x1.
[2022-10-18] MEDS: GLUCAGON FOR INJ 1 MG VIAL IV PUSH (23:37)
[2022-10-18] MEDS: SODIUM CHLORIDE 0.9% IV 250 ML 999 ML IV CONT (23:43)
[2022-10-19] VITALS (17 sets, daily range): BP systolic 85–154; BP diastolic 26–42; PULSE 76–103; RESP 17–20; TEMP 36–36.6; O2SAT 96–100
--- NOTE | 2022-10-19 | ECHO_ITS ---
Patient Info Name: Yo Robbins Age: 77 years : 1945 Gender: Male Ht: 69 in Wt: 232 lbs BSA: 2.30 m2 HR: 85 bpm BP: 103 / 37 mmHg Heart Rhythm: Sinus Rhythm Technical Quality: Fair Exam Date: 10/19/2022 1:45 PM Exam Location: [facility] Card Pulmonary Patient Status: Inpatient Admit Date: 10/17/2022 Staff Ordering Physician: Ayush Lopez MD [employer] Instructor: Gisell Bell RDCS Attending Provider: Rayray Nelson MD Exam Type: CA echo dop color flow w con Study Info Indications - CHF Complete two-dimensional, color flow and Doppler transthoracic echocardiogram is performed with contrast to opacify the left ventricle and to improve the deliniation of the left ventricle endocardial borders. Contrast/Agitated Saline Contrast/Ag. Saline: Definity Amount: 2.00 ml Administered By: Gisell Bell RDCS Existing IV Access: Yes IV Access Condition: patent with no signs of infiltration Summary 1. Left ventricular dilation with mildly reduced systolic function. 2. Prosthetic aortic valve which is not stenotic but at least moderately regurgitant based on color Doppler and AI pressure half-time analysis. 3. Calcified mitral valve annulus. 4. Enlarged left atrium. Left Ventricle Left ventricular chamber dimension is moderately enlarged. Left ventricular systolic function is mildly reduced, estimated at 45-50%. The left ventricular diastolic function is grade I diastolic dysfunction. Right Ventricle Right ventricular chamber dimension is normal. Left Atria Left atrial chamber dimension is moderately enlarged. Right Atria Right atrial chamber dimension is normal. Aortic Valve There is no bioprosthetic aortic valve stenosis. There is moderate regurgitation of the bioprosthetic aortic valve. Pulmonic Valve The pulmonic valve is not well visualized. Mitral Valve The mitral valve has normal leaflets. The mitral valve annulus is mildly calcified. Tricuspid Valve The tricuspid valve leaflets are not well visualized. Pericardium/Pleural The pericardium appears normal. Aorta The aortic root size at the sinus of Valsalva is normal. Left Ventricular Outflow Tract Name Value Normal LVOT 2D LVOT Diameter 1.95 cm LVOT Doppler LVOT Peak Gradient 8 mmHg LVOT Mean Gradient 5 mmHg LVOT VTI 44.58 cm LVOT VTI/AV VTI Ratio 0.95 LVOT Stroke Volume 132.67 ml LVOT CO 6.98 l/min LVOT CI 3.03 L/min/m2 Pulmonic Valve Name Value Normal RVOT Doppler RVOT Peak Gradient 4 mmHg PV Doppler PV Peak Gradient 4 mmHg Mitral Valve Name
[2022-10-19] MEDS: SODIUM CHLORIDE 0.9% IV 250 ML 999 ML IV CONT (00:02)
--- NOTE | 2022-10-19 01:15 | PC.NURSE ---
Call if blood pressure drops more or if patient becomes symptomatic. Blood pressure is fine per Dr. Horvath.
[2022-10-19 08:20] LABS: Glucose Point of Care 168 mg/dl (65-105)
[2022-10-19] MEDS: ROSUVASTATIN 10 MG TABLET 20 MG PO (09:12)
[2022-10-19] MEDS: MULTIVITAMINS THERAPEUTIC TAB (*BKC) 1 TABLET PO (09:12)
[2022-10-19] MEDS: PANTOPRAZOLE 40 MG TABLET PO (09:12)
[2022-10-19] MEDS: ASPIRIN 81 MG ENTERIC TABLET PO (09:13)
[2022-10-19] MEDS: ENOXAPARIN 40 MG/0.4 ML SYRINGE SUB-Q (09:13)
[2022-10-19] MEDS: GABAPENTIN 300 MG CAPSULE PO ×3 (09:13→17:19)
[2022-10-19] MEDS: METOCLOPRAMIDE HCL 5 MG TABLET PO ×4 (09:16→20:39)
[2022-10-19] MEDS: cilostazoL 100 MG TABLET PO (09:17)
--- NOTE | 2022-10-19 10:13 | PM.IMPN ---
Progress Note: A&P Assessment and Plan (1) Acute respiratory failure with hypoxia: Code(s): J96.01 - Acute respiratory failure with hypoxia Status: Acute Assessment and Plan: Likely secondary to heart failure exacerbation with possible valvular disease contributing, appreciate cardiology consultation and management Echo ordered and pending No diuretics given today, appears euvolemic (2) Acute pulmonary edema: Code(s): J81.0 - Acute pulmonary edema Status: Acute Assessment and Plan: Check echocardiogram to evaluate cardiac function along with aortic and mitral valve (3) Abdominal pain: Code(s): R10.9 - Unspecified abdominal pain Status: Acute Assessment and Plan: Patient has very nonspecific symptoms of abdominal discomfort going over 6-8 months. He states he had workup done at [facility] which showed hernia and few other finding although he is not sure fall the details. Lipase was normal His symptoms suggest that he may have diabetic gastroparesis, start on Reglan (4) Chest pain: Code(s): R07.9 - Chest pain, unspecified Status: Acute Assessment and Plan: Nonspecific abdominal and chest pain Cardiac catheterization was negative for any occlusion (5) Benign essential tremor: Code(s): G25.0 - Essential tremor Status: Acute Assessment and Plan: Continue propranolol (6) Elevated serum creatinine: Code(s): R79.89 - Other specified abnormal findings of blood chemistry Status: Acute Assessment and Plan: Patient presented with creatinine 1.5. He appears to have chronic kidney disease with creatinine was slightly more elevated Repeat creatinine 1.2 Monitor urine output electrolytes and creatinine (7) Diabetes mellitus: Code(s): E11.9 - Type 2 diabetes mellitus without complications Status: Acute Assessment and Plan: Sliding scale insulin HbA1c 6.6 Hold metformin in light of elevated creatinine Plan DVT prophylaxis with Lovenox GI prophylaxis not indicated Code status full code Subjective Date/time seen: 10/19/22 10:13 Interval history: 77-year-old male with history of hypertension, diabetes, aortic stenosis, heart disease among other comorbidities is presenting with chest pain and shortness of breath and found to have a STEMI and urgently taken to the labor delivery rn where no new vascular disease nor obstruction was discovered and is currently being treated for respiratory failure secondary to heart failure exacerbation and concern for recurrent aortic valve disease. No overnight events noted. No nausea, vomiting or diarrhea. No fevers or chills. Denies CP or SOB. Feels about the same as yesterday. Review of Systems Review of Systems: 12 point review of systems was assessed and was negative except as noted in the HPI Exam Narrative: General: No acute distress, alert and oriented per baseline, comfortable on 3 L nasal cannula HEENT: Atraumatic, normocephalic, mucous membranes moist CV: Regular rate and rhythm, S1, S2 Lungs: Somewhat diminished at bases, no wheeze or crackles noted Abdomen: Soft, nontender, nondistended Extremities: Normal to inspection Skin: No rashes noted, no lesions or wounds seen Psych: Euthymic, normal affect Objective Data Vital Signs Vital Signs: Vital Signs - 24 hr 10/18/22 12:00 10/18/22 12:00 10/18/22 12:00 Temperature 98.1 F Pulse Rate 79 91 Respiratory Rate 19 Blood Pressure 138/52 L Pulse Oximetry 99 99 Oxygen Delivery Nasal Cannula Oxygen Flow Rate 4 10/18/22 13:25 10/18/22 14:28 10/18/22 14:00 Temperature Pulse Rate 91 106 H 88 Respiratory Rate Blood Pressure Pulse Oximetry 97 Oxygen Delivery Oxygen Flow Rate 10/18/22 14:00 10/18/22 16:00 10/18/22 16:00 Temperature 100 F H Pulse Rate 88 81 Respiratory Rate 23 H Blood Pressure 93/67 L Pulse Oxim
[2022-10-19 11:00] LABS: Basophils Percent Auto 0.3 % (0.2-1.2); Eosinophils Absolute Auto 0.1 K/mm3 (0-0.3); Eosinophils Percent Auto 0.9 % (0-4.4); Hematocrit 39.5 % (42.0-52.0); Hemoglobin 12.7 g/dL (14.0-18.0); Immature Granulocyte Absolute 0.05 K/mm3 (0.00-0.031); Immature Granulocyte Percent A 0.4 % (0-0.5); Lymphocytes Absolute Auto 1.34 K/mm3 (0.9-3.2); Mean Corpuscular HGB Conc 32.2 g/dl (32-36); Mean Corpuscular Hemoglobin 26.8 pg (26-34); Mean Corpuscular Volume 83.3 fl (80-100); Mean Platelet Volume 10.9 fl (7.4-10.4); Monocytes Absolute Auto 0.9 K/mm3 (0.1-0.6); Monocytes Percent Auto 7.7 % (2.6-8.5); Neutrophils Absolute Auto 8.8 K/mm3 (1.3-6.7); Neutrophils Percent Auto 78.7 % (45.5-73.1); Platelet Count Result 162 k/mm3 (150-375); Red Blood Count 4.74 M/mm3 (4.6-6.20); Red Cell Distribution Width 14.6 % (11.5-14.5); White Blood Count 11.1 K/mm3 (4.5-10.0)
[2022-10-19 11:18] LABS: Alanine Aminotransferase 22 U/L (6-50); Albumin Level 3.7 g/dL (3.5-5.1); Alkaline Phosphatase 54 U/L (38-126); Anion Gap 7 mmol/L (8-16); Aspartate Amino Transferase 38 U/L (17-59); Bilirubin,Total 1.3 mg/dL (0.2-1.3); Blood Urea Nitrogen 44 mg/dL (9-20); Calcium 8.9 mg/dL (8.4-10.2); Carbon Dioxide 31 mmol/L (22-30); Chloride 97 mmol/L (98-107); Estimated CRCL calculation 35 ml/min; Estimated Glomerular Filt Rate 33; Glucose 204 mg/dL (65-110); Potassium 4.4 mmol/L (3.4-5.0); Sodium 135 mmol/L (137-145)
--- NOTE | 2022-10-19 11:23 | PM.PNCARD ---
Progress Note: A&P Assessment and Plan (1) Acute pulmonary edema: Code(s): J81.0 - Acute pulmonary edema Status: Acute Assessment and Plan: possibly related related to significant aortic insufficiency. will hold metoprolol because aortic insufficiency. Metoprolol will increase diastolic filling time and worsened AI. Hold further diuretics at this point given acute renal failure. awaiting echo (2) Elevated serum creatinine: Code(s): R79.89 - Other specified abnormal findings of blood chemistry Status: Acute Assessment and Plan: Bump in creatinine of 2.0. Hold lisinopril and diuretics for now (3) Coronary artery disease: Code(s): I25.10 - Atherosclerotic heart disease of [place] coronary artery without angina pectoris Status: Acute Assessment and Plan: continue aspirin, statin. (4) Hypertension associated with diabetes: Code(s): E11.59 - Type 2 diabetes mellitus with other circulatory complications; I15.2 - Hypertension secondary to endocrine disorders Status: Acute Assessment and Plan: Stable at reasonable goal Subjective Date/time seen: 10/19/22 11:23 Interval history: Follow-up visit in this 77-year-old man with: History of aortic valve stenosis and coronary artery disease. 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 Presented to the hospital yesterday with severe shortness of breath was felt to be having STEMI which was activated by the ED staff. Emergency angiography note is dictated separately. There was no evidence of acute anterior [place]. in fact the coronary artery disease was relatively mild I did not see any obvious flow-limiting disease in the LAD and the CONNOR graft remains patent. There was no obvious flow-limiting disease in the right coronary either and the saphenous vein graft appears to be occluded. There is some angiographic evidence of prosthetic AI which was noted on his aortic root injection. Date of service 10/19/2022: He feels better. Slept well last night. No chest pain or shortness of breath. Review of Systems Review of Systems: All systems reviewed & are unremarkable except as noted in HPI and below Constitutional: Constitutional: Denies body ache(s) Eyes: Eyes: Denies blurry vision ENT: Reports Normal hearing present Cardiovascular: Cardiovascular: Denies chest pain Gastrointestinal: Gastrointestinal: Denies abdominal pain Genitourinary: Genitourinary: Denies hematuria Neurologic: Denies Abnormal speech present Exam Const: General: comfortable and no acute distress Other: Pleasant white male no apparent distress HENMT: Mouth: Yes moist mucous membranes Eyes: Sclera: sclerae normal Neck: Neck: supple Other: Mildly elevated venous pressure about 2 cm above the angle of Romero Resp: Effort & Inspection: normal respiratory effort Other: Scant basilar crackles noted at this time Cardio: Rate: regular rate Rhythm: regular rhythm Other: Grade 2/6 crescendo decrescendo murmur at the base. Barely audible diastolic decrescendo murmur audible at the apex with breath holding GI: Auscultation: normal bowel sounds Skin: General skin exam: normal color Neuro: Speech: normal speech Other: Alert and oriented x3 Extrem: Other: mild edema, distal pulses are diminished but palpable . Right groin with a small amount of ecchymosis but bruit or hematoma Psych: Mental Status: mental status grossly normal Objective Data Vital Signs Vital Signs: Vital Signs - 24 hr 10/18/22 12:00 10/18/22 12:00 10/18/22 12:00 Temperature 36.7 C Pulse Rate 79 91 Respiratory Rate 19 Blood Pressure 138/52 L Pulse Oximetry 99 99 Oxygen Delivery Nasal Cannula Oxygen Flow Rate 4 10/18/22 13:25 10/18/22 14:28 10/18/22 14:00 Temperature Pulse Rate 91 106 H 88 Respiratory Rate Blood Pressure Pulse O
[2022-10-19 11:47] LABS: Glucose Point of Care 185 mg/dl (65-105)
[2022-10-19] MEDS: PERFLUTREN LIPID MICROSPHERES 1.5 ML VIAL DILUTED TO 10 ML TOTAL VOLUME IV PUSH (14:10)
[2022-10-19 15:48] LABS: Glucose Point of Care 266 mg/dl (65-105)
[2022-10-19] MEDS: INSULIN ASPART (*BKC) 100 UNITS/ML SUB-Q ×2 (17:19→20:39)
[2022-10-19 20:30] LABS: Glucose Point of Care 228 mg/dl (65-105)
[2022-10-19] MEDS: PRAZOSIN HCL 1 MG CAPSULE 2 MG PO (20:39)
[2022-10-20] VITALS (19 sets, daily range): BP systolic 127–178; BP diastolic 29–92; PULSE 95–135; RESP 18–20; TEMP 36.1–37.1; O2SAT 96–99
[2022-10-20 05:17] LABS: Basophils Percent Auto 0.3 % (0.2-1.2); Eosinophils Absolute Auto 0.1 K/mm3 (0-0.3); Eosinophils Percent Auto 1.8 % (0-4.4); Hematocrit 36.9 % (42.0-52.0); Immature Granulocyte Absolute 0.02 K/mm3 (0.00-0.031); Immature Granulocyte Percent A 0.3 % (0-0.5); Lymphocytes Absolute Auto 1.29 K/mm3 (0.9-3.2); Lymphocytes Percent Auto 17.5 % (18.3-44.2); Mean Corpuscular HGB Conc 32.5 g/dl (32-36); Mean Corpuscular Hemoglobin 27.1 pg (26-34); Mean Corpuscular Volume 83.5 fl (80-100); Mean Platelet Volume 11.1 fl (7.4-10.4); Monocytes Absolute Auto 0.7 K/mm3 (0.1-0.6); Neutrophils Absolute Auto 5.2 K/mm3 (1.3-6.7); Neutrophils Percent Auto 70.1 % (45.5-73.1); Platelet Count Result 144 k/mm3 (150-375); Red Blood Count 4.42 M/mm3 (4.6-6.20); Red Cell Distribution Width 14.6 % (11.5-14.5); White Blood Count 7.4 K/mm3 (4.5-10.0)
[2022-10-20 05:47] LABS: Alanine Aminotransferase 23 U/L (6-50); Albumin Level 3.5 g/dL (3.5-5.1); Alkaline Phosphatase 60 U/L (38-126); Anion Gap 4 mmol/L (8-16); Aspartate Amino Transferase 35 U/L (17-59); Bilirubin,Total 1.1 mg/dL (0.2-1.3); Blood Urea Nitrogen 43 mg/dL (9-20); Calcium 8.7 mg/dL (8.4-10.2); Carbon Dioxide 32 mmol/L (22-30); Chloride 101 mmol/L (98-107); Estimated CRCL calculation 41 ml/min; Estimated Glomerular Filt Rate 39; Glucose 189 mg/dL (65-110); Sodium 137 mmol/L (137-145)
[2022-10-20] MEDS: METOCLOPRAMIDE HCL 5 MG TABLET PO ×2 (07:46→11:38)
[2022-10-20] MEDS: cilostazoL 100 MG TABLET PO (07:47)
[2022-10-20] MEDS: INSULIN ASPART (*BKC) 100 UNITS/ML SUB-Q ×4 (07:54→20:31)
--- NOTE | 2022-10-20 08:11 | PM.IMPN ---
Progress Note: A&P Assessment and Plan (1) Acute respiratory failure with hypoxia: Code(s): J96.01 - Acute respiratory failure with hypoxia Status: Acute Assessment and Plan: Likely secondary to heart failure exacerbation with possible valvular disease contributing, appreciate cardiology consultation and management, echo ordered, EF is 45-50% with grade 1 diastolic dysfunction and aortic valve regurgitation noted No diuretics given, appears euvolemic Await Cardiology recommendations Weaned to 1 L nasal cannula today, will order home O2 eval update: stable on room air for now, monitor (2) Acute pulmonary edema: Code(s): J81.0 - Acute pulmonary edema Status: Acute Assessment and Plan: See above, resolved (3) Abdominal pain: Code(s): R10.9 - Unspecified abdominal pain Status: Acute Assessment and Plan: Patient has very nonspecific symptoms of abdominal discomfort going over 6-8 months. He states he had workup done at [facility] which showed hernia and few other finding although he is not sure fall the details. Lipase was normal, his symptoms suggest that he may have diabetic gastroparesis, started on Reglan 10/20: weaned off reglan, monitor symptoms (4) Chest pain: Code(s): R07.9 - Chest pain, unspecified Status: Acute Assessment and Plan: Nonspecific abdominal and chest pain Cardiac catheterization was negative for any occlusion (5) Benign essential tremor: Code(s): G25.0 - Essential tremor Status: Acute Assessment and Plan: Continue propranolol (6) Elevated serum creatinine: Code(s): R79.89 - Other specified abnormal findings of blood chemistry Status: Acute Assessment and Plan: Patient presented with creatinine 1.5. He appears to have chronic kidney disease with creatinine was slightly more elevated Repeat creatinine 1.2 Monitor urine output electrolytes and creatinine 10/20: Down to 1.7 from 2 yesterday (7) Diabetes mellitus: Code(s): E11.9 - Type 2 diabetes mellitus without complications Status: Acute Assessment and Plan: Sliding scale insulin HbA1c 6.6 Hold metformin in light of elevated creatinine Plan DVT prophylaxis with Lovenox GI prophylaxis not indicated Code status full code Subjective Date/time seen: 10/20/22 08:11 Interval history: 77-year-old male with history of hypertension, diabetes, aortic stenosis, heart disease among other comorbidities is presenting with chest pain and shortness of breath and found to have a STEMI and urgently taken to the [facility] where no new vascular disease nor obstruction was discovered and is currently being treated for respiratory failure secondary to heart failure exacerbation and concern for recurrent aortic valve disease. No overnight events noted. No nausea, vomiting or diarrhea. No fevers or chills. Denies CP or SOB. Feels better than yesterday, off oxygen. Review of Systems Review of Systems: 12 point review of systems was assessed and was negative except as noted in the HPI Exam Narrative: General: No acute distress, alert and oriented per baseline, comfortable on 3 L nasal cannula HEENT: Atraumatic, normocephalic, mucous membranes moist CV: Regular rate and rhythm, S1, S2 Lungs: Somewhat diminished at bases, no wheeze or crackles noted Abdomen: Soft, nontender, nondistended Extremities: Normal to inspection Skin: No rashes noted, no lesions or wounds seen Psych: Euthymic, normal affect Objective Data Vital Signs Vital Signs: Vital Signs - 24 hr 10/19/22 11:52 10/19/22 10:00 10/19/22 12:00 Temperature 97.5 F L Pulse Rate 78 81 Respiratory Rate 17 Blood Pressure 133/33 L Pulse Oximetry 99 99 Oxygen Delivery Nasal Cannula Oxygen Flow Rate 3 10/19/22 16:00 10/19/22 12:00 10/19/22 14:00 Temperature 97.9 F Pulse Rate 93 94 81 Respiratory Rate
[2022-10-20 08:22] LABS: Glucose Point of Care 231 mg/dl (65-105)
[2022-10-20] MEDS: MULTIVITAMINS THERAPEUTIC TAB (*BKC) 1 TABLET PO (09:45)
[2022-10-20] MEDS: ENOXAPARIN 40 MG/0.4 ML SYRINGE SUB-Q (09:45)
[2022-10-20] MEDS: ASPIRIN 81 MG ENTERIC TABLET PO (09:45)
[2022-10-20] MEDS: GABAPENTIN 300 MG CAPSULE PO ×3 (09:46→17:32)
[2022-10-20] MEDS: PANTOPRAZOLE 40 MG TABLET PO (09:46)
[2022-10-20] MEDS: ROSUVASTATIN 10 MG TABLET 20 MG PO (09:46)
--- NOTE | 2022-10-20 10:08 | PM.PNCARD ---
Progress Note: A&P Assessment and Plan (1) Acute pulmonary edema: Code(s): J81.0 - Acute pulmonary edema Status: Acute Assessment and Plan: Possibly related related to significant aortic insufficiency. Improved with BiPAP and diuresis. Diuretics on hold at this time because of renal insufficiency. He will likely need to be discharged on some furosemide. (2) Aortic insufficiency: Code(s): I35.1 - Nonrheumatic aortic (valve) insufficiency Status: Acute Assessment and Plan: Echo showed moderate AI and mildly reduced LV systolic function with an EF 45 - 50%. MARCELLUS as an outpatient, timing of which to be determined by Dr. Delvalle Medical management with a focus on treating hypertension. Restart lisinopril when OLGA improves. Avoid beta blockers as they increase time in diastole leading to increase in regurgitant volume (3) Elevated serum creatinine: Code(s): R79.89 - Other specified abnormal findings of blood chemistry Status: Acute Assessment and Plan: Bump in creatinine of 2.0 yesterday. Improved today, SCr 1.7. Continue to hold lisinopril and diuretics. (4) Coronary artery disease: Code(s): I25.10 - Atherosclerotic heart disease of [place] coronary artery without angina pectoris Status: Acute Assessment and Plan: continue aspirin, statin. (5) Hypertension associated with diabetes: Code(s): E11.59 - Type 2 diabetes mellitus with other circulatory complications; I15.2 - Hypertension secondary to endocrine disorders Status: Acute Assessment and Plan: Stable at reasonable goal Subjective Date/time seen: 10/20/22 10:08 Interval history: Follow-up visit in this 77-year-old man with: History of aortic valve stenosis and coronary artery disease. 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 Presented to the hospital yesterday with severe shortness of breath was felt to be having STEMI which was activated by the ED staff. Emergency angiography note is dictated separately. There was no evidence of acute anterior CO. in fact the coronary artery disease was relatively mild I did not see any obvious flow-limiting disease in the LAD and the CONNOR graft remains patent. There was no obvious flow-limiting disease in the right coronary either and the saphenous vein graft appears to be occluded. There is some angiographic evidence of prosthetic AI which was noted on his aortic root injection. Date of service 10/19/2022: He feels better. Slept well last night. No chest pain or shortness of breath. Date of service 10/20/2022: Feeling well this morning. No shortness of breath, chest pain, palpitations, swelling. Review of Systems Review of Systems: All systems reviewed & are unremarkable except as noted in HPI and below ROS unobtainable: Yes unobtainable due to medical condition Constitutional: Constitutional: Denies body ache(s) Eyes: Eyes: Denies blurry vision ENT: Reports Normal hearing present Cardiovascular: Cardiovascular: Denies chest pain Gastrointestinal: Gastrointestinal: Denies abdominal pain Genitourinary: Genitourinary: Denies hematuria Neurologic: Reports Normal hearing present and Denies Abnormal speech present Exam Const: General: comfortable, no acute distress and uncomfortable Other: Pleasant white male no apparent distress HENMT: Mouth: Yes moist mucous membranes Eyes: Sclera: sclerae normal Neck: Neck: supple and no JVD Resp: Effort & Inspection: normal respiratory effort Auscultation: crackles Cardio: Rate: regular rate Rhythm: regular rhythm Heart sounds: Murmur heart sound present diastolic and systolic GI: Auscultation: normal bowel sounds Skin: General skin exam: normal color Neuro: Cranial nerves: Yes Normal hearing present Speech: normal speech and No Abnormal speech present Other: Alert and oriented x3 Extrem: Other:
--- NOTE | 2022-10-20 10:27 | PC.NURSE ---
Discussed medications with JANEEN Garcia. Ok to give HCTZ.
[2022-10-20] MEDS: hydroCHLOROthiazide 12.5 MG CAPSULE PO (10:28)
[2022-10-20 11:37] LABS: Glucose Point of Care 287 mg/dl (65-105)
--- NOTE | 2022-10-20 12:34 | HOMEO2EVAL ---
Evaluation was performed at [facility] Home Oxygen Evaluation RC: Home Oxygen (O2) Evaluation Start: 10/20/22 08:12 Freq: ONCE Status: Active Protocol: RPE Activity Type Activity Date Activity User E-sign Co-sign Detail Recorded Client Recorded Date Recorded By Document 10/20/22 12:15 BLAKE [id number] 10/20/22 12:34 BLAKE Document 10/20/22 12:20 BLAKE [id number] 10/20/22 12:34 BLAKE Document 10/20/22 12:30 BLAKE [id number] 10/20/22 12:34 BLAKE 10/20/22 10/20/22 10/20/22 12:15 12:20 12:30 Home O2 Evaluation [Oxygen] -Test Phase Resting Exercise Resting -Oxygen Delivery Room Air Room Air Room Air [Pulse Oximetry] -Pulse Oximetry (90-100 %) 98 96 98 [Pulse Rate] -Pulse Rate (60-100 beats/min) 109 H 128 H 110 H [Comments] -Home Oxygen Evaluation Comments No Home O2 needed at this time. [Charges] -Treatment Charges O2 Evaluation - Inpatient
--- NOTE | 2022-10-20 12:34 | PCRCNOTE ---
Home O2 eval done, No home o2 needed.
[2022-10-20 17:24] LABS: Glucose Point of Care 278 mg/dl (65-105)
[2022-10-20 20:30] LABS: Glucose Point of Care 332 mg/dl (65-105)
[2022-10-20] MEDS: PRAZOSIN HCL 1 MG CAPSULE 2 MG PO (20:30)
--- NOTE | 2022-10-20 21:58 | ECG_ITS ---
Measurements Intervals [place] Rate: 120 P: 43 WA: 123 QRS: 8 QRSD: 105 T: 177 QT: 318 QTc: 450 Interpretive Statements SINUS TACHYCARDIA INTRAVENTRICULAR CONDUCTION DELAY LEFT VENTRICULAR HYPERTROPHY AND ST-T CHANGE ST-T WAVE ABNORMALITY IN ANTEROLATERAL LEADS- CONSIDER ISCHEMIA ABNORMAL ECG COMPARED TO ECG 10/17/2022 23:25:18 NO SIGNIFICANT CHANGES Electronically Signed On 10-21-2022 6:52:38 CDT by Sahil Robison D.O.
[2022-10-20] MEDS: METOPROLOL TARTRATE INJ 5 MG/5 ML VIAL IV PUSH (22:30)
[2022-10-20] MEDS: METOPROLOL TARTRATE 25 MG TABLET PO (23:48)
[2022-10-21] VITALS (22 sets, daily range): BP systolic 116–183; BP diastolic 36–56; PULSE 86–117; RESP 16–18; TEMP 36.7–37.3; O2SAT 96–99
[2022-10-21 04:04] LABS: Basophils Percent Auto 0.4 % (0.2-1.2); Eosinophils Absolute Auto 0.1 K/mm3 (0-0.3); Eosinophils Percent Auto 1.9 % (0-4.4); Hematocrit 35.1 % (42.0-52.0); Hemoglobin 11.6 g/dL (14.0-18.0); Immature Granulocyte Absolute 0.02 K/mm3 (0.00-0.031); Immature Granulocyte Percent A 0.3 % (0-0.5); Lymphocytes Absolute Auto 1.32 K/mm3 (0.9-3.2); Lymphocytes Percent Auto 18.2 % (18.3-44.2); Mean Corpuscular Hemoglobin 27.4 pg (26-34); Mean Corpuscular Volume 82.8 fl (80-100); Mean Platelet Volume 10.8 fl (7.4-10.4); Monocytes Absolute Auto 0.6 K/mm3 (0.1-0.6); Monocytes Percent Auto 8.4 % (2.6-8.5); Neutrophils Absolute Auto 5.1 K/mm3 (1.3-6.7); Neutrophils Percent Auto 70.8 % (45.5-73.1); Platelet Count Result 145 k/mm3 (150-375); Red Blood Count 4.24 M/mm3 (4.6-6.20); Red Cell Distribution Width 14.5 % (11.5-14.5); White Blood Count 7.2 K/mm3 (4.5-10.0)
[2022-10-21 04:17] LABS: Alanine Aminotransferase 24 U/L (6-50); Albumin Level 3.6 g/dL (3.5-5.1); Alkaline Phosphatase 58 U/L (38-126); Anion Gap 3 mmol/L (8-16); Aspartate Amino Transferase 36 U/L (17-59); Bilirubin,Total 1.1 mg/dL (0.2-1.3); Blood Urea Nitrogen 38 mg/dL (9-20); Calcium 8.7 mg/dL (8.4-10.2); Carbon Dioxide 31 mmol/L (22-30); Chloride 104 mmol/L (98-107); Estimated CRCL calculation 49 ml/min; Estimated Glomerular Filt Rate 49; Glucose 168 mg/dL (65-110); Potassium 3.8 mmol/L (3.4-5.0); Sodium 138 mmol/L (137-145)
[2022-10-21] MEDS: METOPROLOL TARTRATE 25 MG TABLET PO ×3 (05:12→21:08)
[2022-10-21 08:12] LABS: Glucose Point of Care 208 mg/dl (65-105)
[2022-10-21] MEDS: PANTOPRAZOLE 40 MG TABLET PO (08:37)
[2022-10-21] MEDS: ROSUVASTATIN 10 MG TABLET 20 MG PO (08:37)
[2022-10-21] MEDS: MULTIVITAMINS THERAPEUTIC TAB (*BKC) 1 TABLET PO (08:37)
[2022-10-21] MEDS: INSULIN ASPART (*BKC) 100 UNITS/ML SUB-Q ×4 (08:38→21:08)
[2022-10-21] MEDS: hydroCHLOROthiazide 12.5 MG CAPSULE PO (08:38)
[2022-10-21] MEDS: ENOXAPARIN 40 MG/0.4 ML SYRINGE SUB-Q (08:38)
[2022-10-21] MEDS: ASPIRIN 81 MG ENTERIC TABLET PO (08:38)
[2022-10-21] MEDS: GABAPENTIN 300 MG CAPSULE PO ×3 (08:38→16:55)
[2022-10-21] MEDS: cilostazoL 100 MG TABLET PO (08:40)
--- NOTE | 2022-10-21 11:26 | PM.PNCARD ---
Progress Note: A&P Assessment and Plan (1) Acute pulmonary edema: Code(s): J81.0 - Acute pulmonary edema Status: Acute Assessment and Plan: Possibly related related to significant aortic insufficiency. Improved with BiPAP and diuresis. (2) Aortic insufficiency: Code(s): I35.1 - Nonrheumatic aortic (valve) insufficiency Status: Acute Assessment and Plan: Echo showed moderate AI and mildly reduced LV systolic function with an EF 45 - 50%. MARCELLUS as an outpatient, timing of which to be determined by Dr. Delvalle likely next week Medical management with a focus on treating hypertension. Will restart lisinopril today 40 mg daily as his BP is significantly elevated. He did have some significant tachycardia possibly related to rebound tachycardia from beta-amelia withdrawal. Metoprolol was restarted last night (3) Elevated serum creatinine: Code(s): R79.89 - Other specified abnormal findings of blood chemistry Status: Acute Assessment and Plan: Creatinine is better. (4) Coronary artery disease: Code(s): I25.10 - Atherosclerotic heart disease of [place] coronary artery without angina pectoris Status: Acute Assessment and Plan: continue aspirin, statin. (5) Hypertension associated with diabetes: Code(s): E11.59 - Type 2 diabetes mellitus with other circulatory complications; I15.2 - Hypertension secondary to endocrine disorders Status: Acute Assessment and Plan: Stable at reasonable goal Subjective Date/time seen: 10/21/22 11:26 Interval history: Follow-up visit in this 77-year-old man with: History of aortic valve stenosis and coronary artery disease. 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 Presented to the hospital yesterday with severe shortness of breath was felt to be having STEMI which was activated by the ED staff. Emergency angiography note is dictated separately. There was no evidence of acute anterior [place]. in fact the coronary artery disease was relatively mild I did not see any obvious flow-limiting disease in the LAD and the CONNOR graft remains patent. There was no obvious flow-limiting disease in the right coronary either and the saphenous vein graft appears to be occluded. There is some angiographic evidence of prosthetic AI which was noted on his aortic root injection. Date of service 10/19/2022: He feels better. Slept well last night. No chest pain or shortness of breath. Date of service 10/20/2022: Feeling well this morning. No shortness of breath, chest pain, palpitations, swelling. Date of service 10/21/2022: Had some tachycardia last night and some pounding in his chest which was concerning. Started back on metoprolol heart rate is better today. Now Chest pain. No shortness breath present Review of Systems Review of Systems: All systems reviewed & are unremarkable except as noted in HPI and below Constitutional: Constitutional: Denies body ache(s) Eyes: Eyes: Denies blurry vision ENT: Reports Normal hearing present Cardiovascular: Cardiovascular: Denies chest pain Gastrointestinal: Gastrointestinal: Denies abdominal pain Genitourinary: Genitourinary: Denies hematuria Neurologic: Reports Normal hearing present and Denies Abnormal speech present Exam Const: General: comfortable and no acute distress Other: Pleasant white male no apparent distress HENMT: Mouth: Yes moist mucous membranes Eyes: Sclera: sclerae normal Neck: Neck: supple and no JVD Other: Mildly elevated venous pressure about 2 cm above the angle of Romero Resp: Effort & Inspection: normal respiratory effort Auscultation: diminished lung sounds Cardio: Rate: regular rate Rhythm: regular rhythm Heart sounds: Murmur heart sound present diastolic and systolic Other: Grade 2/6 crescendo decrescendo murmur at the base. Barely audible diastolic decrescendo mu
--- NOTE | 2022-10-21 11:33 | PM.IMPN ---
Progress Note: A&P Assessment and Plan (1) Acute respiratory failure with hypoxia: Code(s): J96.01 - Acute respiratory failure with hypoxia Status: Acute Assessment and Plan: Likely secondary to heart failure exacerbation possibly related to valvular disease. Echo showing EF 45-50%, Grade I diastolic dysfunction and moderate AI. He received 2 doses of lasix IV but Cr climbed to 2.0. He appears euvolemic. he has been maintained on HCTZ. Weaned to room air. Etiology of the CHF unclear. Appreciate Cardiology recommendations. If Cr remains stable tomorrow, will start low dose lasix. Hold HCTZ. (2) Acute pulmonary edema: Code(s): J81.0 - Acute pulmonary edema Status: Acute Assessment and Plan: See above, resolved. (3) OLGA (acute kidney injury): Code(s): N17.9 - Acute kidney failure, unspecified Status: Acute Assessment and Plan: Patient presented with creatinine 1.5. Baseline Cr 1.1-1.4 on chart review. Cr peaked to 2.0. Possibly related to diuretics and/or IV contrast and/or ATN. CT scan showing no obstruction but showing cortical thinning and persistent contrast nephrograms. Cr better. Resume ACEI. If Cr remains stable, start lasix in the morning. (4) Abdominal pain: Code(s): R10.9 - Unspecified abdominal pain Status: Acute Assessment and Plan: Patient has very nonspecific symptoms of abdominal discomfort going over 6-8 months. He states he had workup done at [facility] which showed hernia and few other finding although he is not sure of all the details. Lipase was normal. Concern for gastroparesis so started on Reglan but this was weaned off. Follow (5) Chest pain: Code(s): R07.9 - Chest pain, unspecified Status: Acute Assessment and Plan: Nonspecific abdominal and chest pain Cardiac catheterization was negative for any occlusion. (6) Diabetes mellitus: Code(s): E11.9 - Type 2 diabetes mellitus without complications Status: Acute Assessment and Plan: A1c 6.6. The patient's blood glucose was reviewed on 10/21 Glucose remains well controlled. Continue AccuCheks covering with sliding scale. Hypoglycemia protocol available as needed. Continue to monitor (7) Benign essential tremor: Code(s): G25.0 - Essential tremor Status: Acute Assessment and Plan: Was on metoprolol and propranolol on admission. Currently off propranolol and on higher dose of metoprolol. Stable. Plan DVT prophylaxis with Lovenox Code status full code Subjective Date/time seen: 10/21/22 11:33 Interval history: 77yo male with history of HTN, DM, with AVR and CAD presents with chest pain and SOB. 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 he is being treated for respiratory failure secondary to heart failure exacerbation and concern for recurrent aortic valve disease. Assuming care. Chart reviewed. Patient feels much better. No chest pain. His shortness of breath. He is not wearing the BiPAP at night. He never could tolerate this. He did have episode of tachycardia overnight better after receiving metoprolol. His metoprolol was advanced. Exam Narrative: AF 98.5 174/56 94 18 99% ra Gen - NARD Chest - few right base inspiratory crackles o/w clear CV - RRR S1/S2. Telemetry showing mild sinus tachycardia at times. Abd - Soft, NT/ND, Positive BS Ext - No pedal edema Psych - Nml mood and affect Skin - Warm and dry Objective Data Vital Signs Vital Signs: Vital Signs - 24 hr 10/20/22 12:00 10/20/22 12:15 10/20/22 12:20 Temperature 97.6 F Pulse Rate 123 H 109 H 128 H Respiratory Rate 18 Blood Pressure 157/42 H Pulse Oximetry 97 98 96 Oxygen Delivery Room Air Room Air 10/20/22 12:30 10/20/22 12:00 10/20/22 12:00 Temperature Pulse Rate 110 H 117 H Respiratory Rate Blood Pressure
[2022-10-21 12:22] LABS: Glucose Point of Care 293 mg/dl (65-105)
[2022-10-21] MEDS: lisinopriL 20 MG TABLET 40 MG PO (12:47)
[2022-10-21 16:54] LABS: Glucose Point of Care 275 mg/dl (65-105)
[2022-10-21 20:34] LABS: Glucose Point of Care 337 mg/dl (65-105)
[2022-10-21] MEDS: PRAZOSIN HCL 1 MG CAPSULE 2 MG PO (21:08)
[2022-10-22] VITALS (9 sets, daily range): BP systolic 140–166; BP diastolic 38–60; PULSE 83–119; RESP 16–18; TEMP 36.4–37.2; O2SAT 96–98
[2022-10-22 04:40] LABS: Basophils Percent Auto 0.3 % (0.2-1.2); Eosinophils Absolute Auto 0.2 K/mm3 (0-0.3); Eosinophils Percent Auto 2.7 % (0-4.4); Hematocrit 34.7 % (42.0-52.0); Hemoglobin 11.4 g/dL (14.0-18.0); Immature Granulocyte Absolute 0.02 K/mm3 (0.00-0.031); Immature Granulocyte Percent A 0.3 % (0-0.5); Lymphocytes Absolute Auto 0.89 K/mm3 (0.9-3.2); Lymphocytes Percent Auto 14.8 % (18.3-44.2); Mean Corpuscular HGB Conc 32.9 g/dl (32-36); Mean Corpuscular Hemoglobin 27.1 pg (26-34); Mean Corpuscular Volume 82.6 fl (80-100); Mean Platelet Volume 11.1 fl (7.4-10.4); Monocytes Absolute Auto 0.6 K/mm3 (0.1-0.6); Monocytes Percent Auto 9.3 % (2.6-8.5); Neutrophils Absolute Auto 4.4 K/mm3 (1.3-6.7); Neutrophils Percent Auto 72.6 % (45.5-73.1); Platelet Count Result 155 k/mm3 (150-375); Red Cell Distribution Width 14.6 % (11.5-14.5)
[2022-10-22 05:03] LABS: Alanine Aminotransferase 24 U/L (6-50); Albumin Level 3.4 g/dL (3.5-5.1); Alkaline Phosphatase 54 U/L (38-126); Anion Gap 6 mmol/L (8-16); Aspartate Amino Transferase 32 U/L (17-59); Bilirubin,Total 0.9 mg/dL (0.2-1.3); Blood Urea Nitrogen 34 mg/dL (9-20); Calcium 8.7 mg/dL (8.4-10.2); Carbon Dioxide 30 mmol/L (22-30); Chloride 101 mmol/L (98-107); Estimated CRCL calculation 53 ml/min; Estimated Glomerular Filt Rate 54; Glucose 227 mg/dL (65-110); Potassium 3.8 mmol/L (3.4-5.0); Sodium 137 mmol/L (137-145)
[2022-10-22] MEDS: METOPROLOL TARTRATE 25 MG TABLET PO ×2 (06:51→13:04)
[2022-10-22 08:29] LABS: Glucose Point of Care 217 mg/dl (65-105)
--- NOTE | 2022-10-22 09:37 | PM.DS ---
DS: Admitting Diagnosis Discharge Date 10/22/2022 Admitting Diagnosis Shortness of breath DS: Discharge Diagnosis Discharge Diagnosis (1) Acute pulmonary edema: Code(s): J81.0 - Acute pulmonary edema Status: Acute Assessment and Plan: Possibly related related to significant aortic insufficiency. Improved with BiPAP and diuresis. (2) Aortic insufficiency: Code(s): I35.1 - Nonrheumatic aortic (valve) insufficiency Status: Acute Assessment and Plan: Echo showed moderate AI and mildly reduced LV systolic function with an EF 45 - 50%. [facility] as an outpatient next , 10/[address] Delvalle Medical management with a focus on treating hypertension Continue lisinopril today 40 mg daily Continue metoprolol as he did have significant tachycardia possibly secondary to beta-amelia withdrawal. Will shift to Toprol XL on discharge for dosing convenience (3) Elevated serum creatinine: Code(s): R79.89 - Other specified abnormal findings of blood chemistry Status: Acute Assessment and Plan: Creatinine is better. (4) Coronary artery disease: Code(s): I25.10 - Atherosclerotic heart disease of [place] coronary artery without angina pectoris Status: Acute Assessment and Plan: continue aspirin, statin. (5) Hypertension associated with diabetes: Code(s): E11.59 - Type 2 diabetes mellitus with other circulatory complications; I15.2 - Hypertension secondary to endocrine disorders Status: Acute Assessment and Plan: Stable at reasonable goal DS: Summary Hospital Course Hospital Course: 77-year-old man with previous aortic valve replacement and but surgical bypass grafting in 2010. He entered the hospital on 10/17/22 with some shortness of breath obvious pulmonary edema by exam and chest x-ray and was felt to be having an anterior wall LA. This was shown not to be the case at the time of emergency angiography. He has both good antegrade flow in the [place] LAD as well as a patent CONNOR graft. Echocardiogram was repeated and showed reduced LVSF with EF 40-45% and moderate AI of the prosthetic aortic valve. This is a change from the most recent echocardiogram from our office showing only mild AI. He was diuresed and managed with BiPAP and had improvement of his pulmonary edema. He remained hospitalized because of acute kidney injury and medication adjustments. Today, he is stable and has no complaints and is appropriate for discharge home with plans for outpatient MARCELLUS next week to further evaluate the aortic valve regurgitation. Time Spent with Patient Time attestation: Total time spent providing and/or coordinating discharge services: Exam Const: General: comfortable, no acute distress and uncomfortable Other: Pleasant white male no apparent distress HENMT: Mouth: Yes moist mucous membranes Eyes: Sclera: sclerae normal Neck: Neck: supple and no JVD Other: Mildly elevated venous pressure about 2 cm above the angle of Romero Resp: Effort & Inspection: normal respiratory effort Auscultation: clear to auscultation bilaterally and diminished lung sounds Cardio: Rate: regular rate Rhythm: regular rhythm Heart sounds: Murmur heart sound present diastolic and systolic GI: Auscultation: normal bowel sounds Skin: General skin exam: normal color Neuro: Cranial nerves: Yes Normal hearing present Speech: normal speech and No Abnormal speech present Other: Alert and oriented x3 Extrem: Other: Right groin with a small amount of ecchymosis but bruit or hematoma No peripheral edema Psych: Mental Status: mental status grossly normal DS: Data Data Completed and Pending Labs on day of discharge: Labs from last 24 hours 10/22/22 10/22/22 10/21/22 07:44 03:38 20:31 WBC 6.0 RBC 4.20 L Hgb 11.4 L Hct 34.7 L MCV 82.6 MCH 27.1 MCHC 32.9 RDW 14.6 H Plt Count 155 MPV 11.1 H Im
[2022-10-22] MEDS: ROSUVASTATIN 10 MG TABLET 20 MG PO (10:12)
[2022-10-22] MEDS: ASPIRIN 81 MG ENTERIC TABLET PO (10:13)
[2022-10-22] MEDS: GABAPENTIN 300 MG CAPSULE PO ×2 (10:13→13:01)
[2022-10-22] MEDS: FUROSEMIDE 20 MG TABLET PO (10:13)
[2022-10-22] MEDS: cilostazoL 100 MG TABLET PO (10:14)
[2022-10-22] MEDS: PANTOPRAZOLE 40 MG TABLET PO (10:15)
[2022-10-22] MEDS: MULTIVITAMINS THERAPEUTIC TAB (*BKC) 1 TABLET PO (10:15)
[2022-10-22] MEDS: lisinopriL 20 MG TABLET 40 MG PO (10:16)
[2022-10-22] MEDS: ENOXAPARIN 40 MG/0.4 ML SYRINGE SUB-Q (10:18)
[2022-10-22] MEDS: traMADol HCL (*CRX) 50 MG TABLET PO (10:27)
[2022-10-22] MEDS: INSULIN GLARGINE (*BKC) 100 UNITS/ML 10 UNITS SUB-Q (10:30)
[2022-10-22] MEDS: INSULIN ASPART (*BKC) 100 UNITS/ML SUB-Q ×2 (10:31→13:00)
[2022-10-22 12:05] LABS: Glucose Point of Care 334 mg/dl (65-105)
--- NOTE | 2022-10-22 13:30 | PM.IMPN ---
Progress Note: A&P Assessment and Plan (1) Acute respiratory failure with hypoxia: Code(s): J96.01 - Acute respiratory failure with hypoxia Status: Acute Assessment and Plan: Likely secondary to heart failure exacerbation possibly related to valvular disease. Echo showing EF 45-50%, Grade I diastolic dysfunction and moderate AI. He received 2 doses of lasix IV but Cr climbed to 2.0. He appears euvolemic now. He has been maintained on HCTZ. Weaned to room air. Etiology of the CHF unclear. Appreciate Cardiology recommendations. Cr improved. HCTZ stopped and he was started on Lasix. (2) Acute pulmonary edema: Code(s): J81.0 - Acute pulmonary edema Status: Acute Assessment and Plan: See above, resolved. (3) OLGA (acute kidney injury): Code(s): N17.9 - Acute kidney failure, unspecified Status: Acute Assessment and Plan: Patient presented with creatinine 1.5. Baseline Cr 1.1-1.4 on chart review. Cr peaked to 2.0. Possibly related to diuretics and/or IV contrast and/or ATN. CT scan showing no obstruction but showing cortical thinning and persistent contrast nephrograms. Cr better so able to resume Lisinopril. Cr better today so Lasix started this morning. (4) Abdominal pain: Code(s): R10.9 - Unspecified abdominal pain Status: Acute Assessment and Plan: Patient has very nonspecific symptoms of abdominal discomfort going over 6-8 months. He states he had workup done at [facility] which showed hernia and few other finding although he is not sure of all the details. Lipase was normal. Concern for gastroparesis so was started on Reglan but this was weaned off. Follow (5) Chest pain: Code(s): R07.9 - Chest pain, unspecified Status: Acute Assessment and Plan: Nonspecific abdominal and chest pain Cardiac catheterization was negative for any occlusion. (6) Diabetes mellitus: Code(s): E11.9 - Type 2 diabetes mellitus without complications Status: Acute Assessment and Plan: A1c 6.6. The patient's blood glucose was reviewed on 10/22 Glucose higher now. Unclear given the only mildly elevated A1c. Continue diab diet. Continue AccuCheks covering with sliding scale. Hypoglycemia protocol available as needed. Add lantus. Continue to monitor. Add empagliflozin. Resume metformin (7) Benign essential tremor: Code(s): G25.0 - Essential tremor Status: Acute Assessment and Plan: Was on metoprolol and propranolol on admission. Currently off propranolol and on higher dose of metoprolol. Stable. Plan DVT prophylaxis with Lovenox Code status full code Subjective Date/time seen: 10/22/22 13:30 Interval history: 77yo male with history of HTN, DM, with AVR and CAD presents with chest pain and SOB. 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 he is being treated for respiratory failure secondary to heart failure exacerbation and concern for recurrent aortic valve disease. No issues overnight. No CP or SOB. Feels ready for discharge Exam Narrative: AF 98.4 153/52 102 16 96% ra Gen - NARD Chest - CTA bilaterally, nml RR CV - RRR S1/S2. Telemetry showing no alarms Abd - Soft, NT/ND, Positive BS Ext - No pedal edema Psych - Nml mood and affect Skin - Warm and dry Objective Data Vital Signs Vital Signs: Vital Signs - 24 hr 10/21/22 14:05 10/21/22 14:00 10/21/22 15:15 Temperature Pulse Rate 117 H Respiratory Rate Blood Pressure 116/44 L 132/52 L Pulse Oximetry Oxygen Delivery 10/21/22 14:00 10/21/22 16:00 10/21/22 16:00 Temperature 98.5 F Pulse Rate 110 H 88 101 H Respiratory Rate 18 Blood Pressure 152/51 H Pulse Oximetry 97 Oxygen Delivery 10/21/22 16:00 10/21/22 18:00 10/21/22 19:53 Temperature 99.1 F Pulse Rate 94 97 Respiratory Rate 16 Blood Pressu
== END 2022-10-22 15:50 | disposition home or self-care (01) | DRG 286 ==
LOC: ANHED 21:23 → ANHICU 23:09 → ANHIMU 10-18 16:34
PROVIDERS: Internal Medicine; Student in an Organized Health Care Education/Training Program; Admitting Provider Specialist; Emergency Provider Emergency Medicine; PCP Internal Medicine; Visit Provider Nurse Practitioner
PROC: B211YZZ Fluoroscopy of Multiple Coronary Arteries using Other Contrast (ICD-10-PCS; principal; 2022-10-17 21:40)
DX: I25.10 Atherosclerotic heart disease of native coronary artery without angina pectoris (principal); J81.0 Acute pulmonary edema; J96.01 Acute respiratory failure with hypoxia; N17.9 Acute kidney failure, unspecified; J81.1 Chronic pulmonary edema; E11.9 Type 2 diabetes mellitus without complications; Z95.4 Presence of other heart-valve replacement; F41.9 Anxiety disorder, unspecified; F32.A Depression, unspecified; I08.0 Rheumatic disorders of both mitral and aortic valves; I10 Essential (primary) hypertension; Z77.090 Contact with and (suspected) exposure to asbestos; Z77.29 Contact with and (suspected) exposure to other hazardous substances; Z90.49 Acquired absence of other specified parts of digestive tract; Z95.5 Presence of coronary angioplasty implant and graft; Z95.1 Presence of aortocoronary bypass graft; Z20.822 Contact with and (suspected) exposure to COVID-19; Z87.891 Personal history of nicotine dependence; Z79.82 Long term (current) use of aspirin; Z79.84 Long term (current) use of oral hypoglycemic drugs; J92.0 Pleural plaque with presence of asbestos; G25.0 Essential tremor
CPT/HCPCS: 36415; 36600; 71045; 71250; 74176; 80053; 82805; 82948; 83036; 83690; 83735; 83880; 84484; 85025; 85027; 85610; 85730; 87637; 93005; 93306; 93455; 93976; 94002; 94618; 96374; 99285; A9270; C1769; C1887; C1894; C8929; J0461; J1610; J1644; J1650; J1815; J1940; J2060; J2250; J2270; J3010; J7030; J7040; J7050; Q9957

== ENCOUNTER 2022-10-29 02:46 | Day surgery (SDC) | payer MEDICARE, SELFPAY ==
[2022-10-28 13:14] VITALS: BMI 31.4
[2022-10-29] VITALS (14 sets, daily range): BP systolic 100–177; BP diastolic 39–107; PULSE 81–106; RESP 12–20; TEMP 37; O2SAT 94–99; BMI 31.8
--- NOTE | 2022-10-29 09:58 | WPDHPUPDATE1 ---
History and Physical Update Update Date/Time: 10/29/22 09:58 History and Physical has been reviewed, including an updated exam of the patient. There are NO changes in the patient's condition. Risks, benefits, and alternatives have been discussed and questions answered. Patient agrees to proceed with procedure.
--- NOTE | 2022-10-29 09:58 | WPDMODSED ---
Moderate Sedation Note-Pt Data Patient Data Diagnosis: Status post AVR, aortic valve regurgitation, CHF Present Complaint: None History and physical update: Patient is a very pleasant 77-year-old male with a past medical history significant for CAD with previous stent to RCA, lad, CABG with CARTER to LAD, sequential graft to diagonal, SVG to right PDA, status post 25 mm bioprosthetic aortic valve 02/2011, history PAD, diabetes mellitus, hypertension recently admitted with flash pulmonary edema with concern for least moderate aortic regurgitation which may have contributed to heart failure exacerbation subsequently referred for transesophageal echocardiogram for further evaluation. Impression: Recent flash pulmonary edema Bioprosthetic aortic valve regurgitation CAD status post stents and CABG Hypertension Diabetes mellitus Plan of care: Transesophageal echocardiogram for further assessment of bioprosthetic aortic valve function and regurgitation. Recommendation to follow. Procedure to be performed/Plan: Transesophageal echocardiogram Allergies Allergy/AdvReac Type Severity Reaction Status Date / Time No Known Allergies Allergy Mild Verified 10/29/22 09:17 Home Medications Medication Instructions Recorded Confirmed Type cilostazol 100 mg tablet 100 mg PO DAILY 10/01/21 10/29/22 History gabapentin 300 mg capsule 300 mg PO TID 10/01/21 10/29/22 History lisinopril 40 mg tablet 40 mg PO DAILY 10/01/21 10/29/22 History metformin 1,000 mg tablet 1,000 mg PO BID 10/01/21 10/28/22 History multivitamin 1 tablet PO DAILY 10/01/21 10/29/22 History prazosin 1 mg capsule 1 mg PO QHS 10/01/21 10/28/22 History rosuvastatin 20 mg tablet 20 mg PO DAILY 10/01/21 10/29/22 History tramadol 50 mg tablet 50 mg PO TID PRN Pain 10/01/21 10/29/22 History furosemide 20 mg tablet 20 mg PO DAILY 30 days #30 tabs 10/22/22 10/28/22 Rx metoprolol succinate 25 mg 25 mg PO DAILY 30 days #30 tabs 10/22/22 10/29/22 Rx tablet,extended release 24 hr (Toprol XL) pantoprazole 40 mg tablet,delayed 40 mg PO QAM 30 days #30 tabs 10/22/22 10/29/22 Rx release aspirin 325 mg tablet 325 mg PO DAILY 10/28/22 10/29/22 History Current Medications: See list Sedation/Anesthesia: No previous sedation/anesthesia problems (including family history). 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 Type 2 diabetes mellitus Surgical History Surgical History History of aortic valve replacement Bioprosthetic for AVR History of cholecystectomy ~early to mid 1990s History of coronary artery stent placement History of ventral hernia repair Unknown if mesh was used Hx of CABG Family History Family History Father Heart disease Valve replacement Social History Social History Smoking packs per day: 1.5 Smoking cigarettes per day: 30.0 Years smoked: 15 Smoking pack-years: 22.50 Smoking status: Former smoker Tobacco type: cigarettes Smoking end date: 04/05/89 Alcohol intake: current Alcohol use details: maybe 2-4 per week Substance use: never Substance use type: does not use Lack of Transportation: No Lack of Food: Never True Current Housing: I Have Housing Concerned About Future Housing: No Difficulty Paying Gas/Electric Bills: No Difficulty Paying for Meds: No Currently Unemployed: No Education: High School Diploma/GED Difficulty w/ Childcare or Family
--- NOTE | 2022-10-29 11:22 | WPDTEECHO ---
[facility] TransEsophageal Echocardiogram Date of procedure: 10/29/22 Procedure Type: Transesophageal echocardiogram Diagnosis: Prosthetic aortic valve regurgitation Indications: Prosthetic aortic valve regurgitation Image Quality: Acceptable Findings: Brief history present illness: Patient is a pleasant 77-year-old male with a past medical history significant for CAD with a history of previous stent to the RCA and LAD, status post CABG with CARTER to LAD sequentially grafted to diagonal branch, SVG to right PDA with 25 mm bioprosthetic aortic valve 2010 for severe calcific aortic stenosis, hypertension, type 2 diabetes mellitus, peripheral arterial disease who presented [facility] 10/18/2022 with progressive shortness of breath, chest pain with initial concern for ST elevations emergently taken to the cardiac catheterization lab which revealed moderate caliber LAD with GIOVANY 3 flow and competitive flow in the mid LAD from internal mammary graft, moderate caliber circumflex with mild diffuse disease, RCA mild to moderate diffuse disease 40% stenosis 2nd portion of the RCA, patent CARTER to LAD moderate prosthetic aortic valve regurgitation noted on aortic root injection. 2D echocardiogram revealed moderate LV enlargement mild LV systolic dysfunction EF 45-50% with moderate AI subsequently referred for transesophageal echocardiogram for further evaluation. Procedure in detail: After verbal and written informed consent was obtained the patient risks, benefits, and alternatives explained in detail the patient agreed to proceed with the plan of care as outlined above. The patient was evaluated at bedside in the [facility] procedure room. The posterior oropharynx, neck, and jaw angle all within normal limits on examination. Lungs were clear to auscultation. See pre-sedation note for further details The patient was then placed in the appropriate 30 to 45 degree angle supine position at a slight left lateral decubitus position. Patient was monitored throughout the study with telemetry, oxygen saturation, end-tidal CO2 monitoring, blood pressure, heart rate, and respirations. The posterior hypopharynx was then locally anesthetized using repeated administration of Hurricaine spray as well as gargled viscous lidocaine. After local anesthetic of the posterior hypopharynx was achieved and the oral bite block placed, moderate sedation was administered. After confirmation of adequate moderate sedation, the transesophageal echocardiogram probe was advanced through the oral bite block into the posterior hypopharynx and into the esophagus easily and without complication. Multiple, multiplanar echocardiographic images were obtained in multiple standard re- projections. Pulsed wave, continuous-wave, and color-flow Doppler were utilized in conjunction with this study. At the conclusion of the study, the transesophageal echocardiogram probe was removed easily and without complication. The patient tolerated the procedure well without difficulty. Patient was in sinus rhythm throughout the study. Moderate Sedation/Anesthesia administration: Patient reports no prior problems with sedation/anesthesia. Please see pre-sedation noted for physical examination documentation. As noted above, after adequate local anesthesia of the posterior hypopharynx was achieved, a total of 3 mg intravenous Versed and a total of 75 mcg intravenous Fentanyl in multiple divided doses was administered for moderate sedation. Sedation start time was 1010 and end time was 1043 for a total intra-service/procedure face-face time of 33 minutes. Sedation was administered by a qualified/certified observer Maryanne Jones RN under my supervision with intra-procedure [id number] observation and management throughout the entirety of the procedure. There were no other issues or complications and patient tolerated the procedure well. See post-anesthesia documentation. FINDINGS: LEFT VENTRICLE: Moderat
--- NOTE | 2022-10-29 11:50 | SUR.PHASEII ---
awaiting d/c orders and instructions from md. sheriff aware
== END 2022-10-29 12:09 | disposition home or self-care (01) ==
PROVIDERS: PCP Internal Medicine; Visit Provider Internal Medicine Cardiovascular Disease
PROC: (CPT 93312; principal; 2022-10-29 10:00)
DX: T82.03XA Leakage of heart valve prosthesis, initial encounter (principal); I35.1 Nonrheumatic aortic (valve) insufficiency; I05.2 Rheumatic mitral stenosis with insufficiency; I25.10 Atherosclerotic heart disease of native coronary artery without angina pectoris; Z95.1 Presence of aortocoronary bypass graft; I10 Essential (primary) hypertension; E11.51 Type 2 diabetes mellitus with diabetic peripheral angiopathy without gangrene; Z79.84 Long term (current) use of oral hypoglycemic drugs; E78.2 Mixed hyperlipidemia; Z87.891 Personal history of nicotine dependence; Y83.8 Other surgical procedures as the cause of abnormal reaction of the patient, or of later complication, without mention of misadventure at the time of the procedure
CPT/HCPCS: 93312; 93320; 93325; J2250; J3010; J7040

== ENCOUNTER 2023-06-08 01:11 | Day surgery (SDC) | payer MEDICARE, SELFPAY ==
[2023-05-25 14:40] VITALS: BMI 31.1
--- NOTE | 2023-06-04 09:39 | PC.NURSE ---
Patient called regarding upcoming procedure. Reviewed preop instructions, appointment times, and procedure prep. Spoke with patient regarding medication CILOSTAZOL. Pt. verbalizes understanding that the last dose of CILOSTAZOL is to be taken on 06/03/2023 and the Endoscopist will instruct them when to restart after the procedure.
--- NOTE | 2023-06-07 14:39 | PM.HPGS ---
History of Present Illness History of Present Illness Consent: Risks, benefits, and alternatives have been discussed and questions answered. Patient agrees to proceed with procedure. Chief complaint: neoplasm screening Narrative: Yo Robbins is a 78 year old male Referred for colon cancer screening. He had a tubular adenoma removed 8 years ago. 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 Type 2 diabetes mellitus Surgical History Surgical History History of aortic valve replacement Bioprosthetic for AVR History of cholecystectomy ~early to mid 1990s History of coronary artery stent placement History of ventral hernia repair Unknown if mesh was used Hx of CABG Family History Family History Father Heart disease Valve replacement Social History Social History Smoking packs per day: 1.5 Smoking cigarettes per day: 30.0 Years smoked: 14 Smoking pack-years: 21.00 Smoking status: Former smoker Tobacco type: cigarettes Smoking end date: 04/05/89 Alcohol intake: current Alcohol use details: maybe 2-4 per week Substance use: former Substance use type: does not use Lack of Transportation: No Lack of Food: Never True Current Housing: I Have Housing Concerned About Future Housing: No Difficulty Paying Gas/Electric Bills: No Difficulty Paying for Meds: No Currently Unemployed: No Education: High School Diploma/GED Difficulty w/ Childcare or Family Care: No Living arrangements: with family Occupation/Education: retired Gender identity (if verbalized by the patient): Male Spiritual care concerns: No Meds Home Medications and Allergies Home Medications Medication Instructions Recorded Confirmed Type cilostazol 100 mg tablet 100 mg PO DAILY 10/01/21 05/25/23 History gabapentin 300 mg capsule 300 mg PO TID 10/01/21 05/25/23 History lisinopril 40 mg tablet 40 mg PO DAILY 10/01/21 05/25/23 History metformin 1,000 mg tablet 1,000 mg PO BID 10/01/21 05/25/23 History multivitamin 1 tablet PO DAILY 10/01/21 05/25/23 History prazosin 1 mg capsule 1 mg PO QHS 10/01/21 05/25/23 History rosuvastatin 20 mg tablet 20 mg PO DAILY 10/01/21 05/25/23 History tramadol 50 mg tablet 50 mg PO TID PRN Pain 10/01/21 05/25/23 History furosemide 20 mg tablet 20 mg PO DAILY 30 days #30 tabs 10/22/22 05/25/23 Rx metoprolol succinate 25 mg 25 mg PO DAILY 30 days #30 tabs 10/22/22 05/25/23 Rx tablet,extended release 24 hr (Toprol XL) pantoprazole 40 mg tablet,delayed 40 mg PO QAM 30 days #30 tabs 10/22/22 05/25/23 Rx release aspirin 81 mg capsule 81 mg PO DAILY 05/25/23 05/25/23 History Allergies Allergy/AdvReac Type Severity Reaction Status Date / Time No Known Allergies Allergy Mild Verified 05/25/23 14:44 Exam Const: General: alert Orientation/consciousness: patient oriented x3 Resp: Auscultation: clear to auscultation bilaterally Cardio: Rhythm: regular rhythm GI: GI Palp: Yes Soft to palpation and No Tenderness to palpation present (GI) Neuro: General: patient oriented x3 Assessment and Plan Assessment and plan (1) Colon cancer screening: Code(s): Z12.11 - Encounter for screening for malignant neoplasm of colon Status: Acute Assessment and Plan: Colonoscopy with possible biops
[2023-06-08 08:40] VITALS: BP 157/72; PULSE 86; RESP 19; TEMP 36.4; O2SAT 86; BMI 30.4
[2023-06-08] MEDS: LACTATED RINGERS 1,000 ML 150 ML IV CONT (08:56)
[2023-06-08] MEDS: GENTAMICIN 80MG/SOD CHL 50 ML 80 MG/50 ML BAG 100 MG IVPB (08:59)
[2023-06-08 09:04] LABS: Glucose Point of Care 152 mg/dl (65-105)
--- NOTE | 2023-06-08 09:14 | WPDANESEPPF ---
Anes - Initial Pre Proc Eval Procedure: Operation Date: 06/08/23 10:00 Proposed Procedures p Screening Colonoscopy - Richie Miner MD Date/Time: 06/08/23 09:14 Surgeon: Richie Miner MD Pre Op Diagnosis: neoplasm screening Patient Data Age: 78 Gender: M Height: 1.75 m Weight: 93.6 kg Last Vital Signs Temp 97.6 F 06/08/23 08:40 Pulse 86 06/08/23 08:40 Resp 19 06/08/23 08:40 BP 157/72 H 06/08/23 08:40 Pulse Ox 86 L 06/08/23 08:40 O2 Del Method Room Air 06/08/23 08:40 Allergies Allergy/AdvReac Type Severity Reaction Status Date / Time No Known Allergies Allergy Mild Verified 05/25/23 14:44 Home Medications Medication Instructions Recorded Confirmed Type cilostazol 100 mg tablet 100 mg PO DAILY 10/01/21 05/25/23 History gabapentin 300 mg capsule 300 mg PO TID 10/01/21 05/25/23 History lisinopril 40 mg tablet 40 mg PO DAILY 10/01/21 05/25/23 History metformin 1,000 mg tablet 1,000 mg PO BID 10/01/21 05/25/23 History multivitamin 1 tablet PO DAILY 10/01/21 05/25/23 History prazosin 1 mg capsule 1 mg PO QHS 10/01/21 05/25/23 History rosuvastatin 20 mg tablet 20 mg PO DAILY 10/01/21 05/25/23 History tramadol 50 mg tablet 50 mg PO TID PRN Pain 10/01/21 05/25/23 History furosemide 20 mg tablet 20 mg PO DAILY 30 days #30 tabs 10/22/22 05/25/23 Rx metoprolol succinate 25 mg 25 mg PO DAILY 30 days #30 tabs 10/22/22 05/25/23 Rx tablet,extended release 24 hr (Toprol XL) pantoprazole 40 mg tablet,delayed 40 mg PO QAM 30 days #30 tabs 10/22/22 05/25/23 Rx release aspirin 81 mg capsule 81 mg PO DAILY 05/25/23 05/25/23 History Laboratory Tests 06/08/23 09:00 POC Capillary Glucose 152 H mg/dl (65-105) Patient hx anesthesia problems: none Family hx anesthesia problems: none Results Review: All pre-operative results and documents have been reviewed as part of the pre-operative evaluation. 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 Type 2 diabetes mellitus Surgical History Surgical History History of aortic valve replacement Bioprosthetic for AVR History of cholecystectomy ~early to mid 1990s History of coronary artery stent placement History of ventral hernia repair Unknown if mesh was used Hx of CABG Family History Family History Father Heart disease Valve replacement Social History Social History Smoking packs per day: 1.5 Smoking cigarettes per day: 30.0 Years smoked: 14 Smoking pack-years: 21.00 Smoking status: Former smoker Tobacco type: cigarettes Smoking end date: 04/05/89 Alcohol intake: current Alcohol use details: maybe 2-4 per week Substance use: former Substance use type: does not use Lack of Transportation: No Lack of Food: Never True Current Housing: I Have Housing Concerned About Future Housing: No Difficulty Paying Gas/Electric Bills: No Difficulty Paying for Meds: No Currently Unemployed: No Education: High School Diploma/GED Difficulty w/ Childcare or Family Care: No Living arrangements: with family Occupation/Education: retired Gender identity (if verbalized by the patient): Male Spiritual care concerns: No Anes - Eval Final PreProcedure Day of Procedure 06/08/23 09:14 Patient weight: obese Heart: regular rate and rhythm Lungs: clear to auscultation Airway: Mallampati scale class II Neurological: alert and fernando
[2023-06-08] MEDS: AMPICILLIN 2 GM/NS 100 ML 2 GM/100 ML BAG IVPB (09:26)
[2023-06-08 10:04] VITALS: BP 101/54; PULSE 67; RESP 24; O2SAT 97
[2023-06-08 10:14] VITALS: BP 106/51; PULSE 80; RESP 18; O2SAT 100
[2023-06-08 10:23] VITALS: BP 112/50; PULSE 65; RESP 20; O2SAT 100
== END 2023-06-08 10:30 | disposition home health service (06) ==
PROVIDERS: PCP Internal Medicine; Visit Provider Internal Medicine Gastroenterology
PROC: 0DJD8ZZ Inspection of Lower Intestinal Tract, Via Natural or Artificial Opening Endoscopic (ICD-10-PCS; CPT 45378; principal; 2023-06-08 10:00)
DX: Z12.11 Encounter for screening for malignant neoplasm of colon (principal); K57.30 Diverticulosis of large intestine without perforation or abscess without bleeding; Z86.010 Personal history of colon polyps; I25.10 Atherosclerotic heart disease of native coronary artery without angina pectoris; I10 Essential (primary) hypertension; E11.9 Type 2 diabetes mellitus without complications; E78.2 Mixed hyperlipidemia; J92.0 Pleural plaque with presence of asbestos; F41.9 Anxiety disorder, unspecified; F32.A Depression, unspecified; Z95.2 Presence of prosthetic heart valve; Z95.5 Presence of coronary angioplasty implant and graft; Z95.1 Presence of aortocoronary bypass graft; Z87.891 Personal history of nicotine dependence; E66.9 Obesity, unspecified; Z68.30 Body mass index [BMI] 30.0-30.9, adult; Z79.84 Long term (current) use of oral hypoglycemic drugs
CPT/HCPCS: G0105; 82948; J0290; J1580; J2704; J7120